=== PATIENT | female | born 1945 | race Caucasian/White ===

== ENCOUNTER 2018-06-09 09:43 | Emergency (ER) | payer MEDICARE ==
--- NOTE | 2018-06-09 10:02 | ER Document Report ---
ED Medical Screen (RME) - General Chief Complaint: Anxiety Stated Complaint: POSSIBLE ANXIETY Time Seen by Provider: 06/09/18 09:48 TRAVEL OUTSIDE OF THE [place] IN LAST 30 DAYS: No - HPI Notes: 06/09/18 10:00 Patient is a 72-year-old female that presents to the emergency department for chief complaint of anxiety. Patient states while at home getting ready for the day she started to feel very fearful. She felt warm, nauseated and a little lightheaded. She states the symptoms lasted for a few minutes however her states they lasted for over an hour. She denies history of panic attacks in the past however her says she has had similar symptoms previously. She denies any diagnosis of anxiety or depression. She denies any major life changes. She denies associated chest pain, palpitations and shortness of breath. Patient finished a prescription of Cipro last week for urinary tract infection. Currently she states she feels back to normal. Past medical history Hernan Henley Past surgical history negative Social history: Denies drugs alcohol and tobacco ROS: GENERAL: Denies fever of chills CV: Denies chest pain PHYSICAL EXAMINATION: GENERAL: Well-appearing, well-nourished and in no acute distress. HEAD: Atraumatic, normocephalic. EYES: Pupils equal round extraocular movements intact, conjunctiva are normal. ENT: Nares patent NECK: Normal range of motion LUNGS: No respiratory distress Musculoskeletal: Normal range of motion NEUROLOGICAL: Normal speech, normal gait. PSYCH: Normal mood, normal affect. MDM: Patient seen and examined for rapid initial assessment. Vital signs reviewed. A comprehensive ED assessment and evaluation of the patient, analysis of test results and completion of the medical decision making process will be conducted by additional ED providers. 06/09/18 10:01 - Related Data Allergies/Adverse Reactions: No Known Allergies Allergy (Unverified 06/09/18 09:47) Past Medical History - Social History Chew tobacco use (# tins/day): No Frequency of alcohol use: None Drug Abuse: None Renal/ Medical History: Denies: Hx Peritoneal Dialysis Physical Exam - Vital signs Vitals: Temp Pulse Resp BP Pulse Ox 98.3 F 76 15 153/84 H 99 06/09/18 09:50 06/09/18 09:50 06/09/18 09:50 06/09/18 09:50 06/09/18 09:50 Course - Vital Signs Vital signs: Temp Pulse Resp BP Pulse Ox 98.3 F 76 15 153/84 H 99 06/09/18 09:50 06/09/18 09:50 06/09/18 09:50 06/09/18 09:50 06/09/18 09:50
[2018-06-09 10:31] LABS: APPEARANCE,URINE CLEAR; BILIRUBIN,URINE NEGATIVE (NEGATIVE); COLOR,URINE STRAW; GLUCOSE, URINE NEGATIVE (NEGATIVE); KETONES,URINE NEGATIVE (NEGATIVE); LEUKOCYTE ESTERASE,URINE NEGATIVE (NEGATIVE); NITRITE,URINE NEGATIVE (NEGATIVE); PROTEIN,URINE NEGATIVE (NEGATIVE); URINE SPECIFIC GRAVITY 1.003; UROBILINOGEN,URINE NEGATIVE mg/dL (<2.0)
--- NOTE | 2018-06-09 10:36 | RADIOLOGY REPORT (SQ) ---
EXAM DESCRIPTION: CHEST SINGLE VIEW COMPLETED DATE/TIME: 06/09/2018 10:21 am REASON FOR STUDY: shortness of breath COMPARISON: None. EXAM PARAMETERS: NUMBER OF VIEWS: One view. TECHNIQUE: Single frontal radiographic view of the chest acquired. RADIATION DOSE: NA LIMITATIONS: None. FINDINGS: LUNGS AND PLEURA: Emphysematous change with hyperinflation. Mild biapical scarring and pl eural thickening. No focal airspace disease, pleural effusion or pneumothorax can. MEDIASTINUM AND HILAR STRUCTURES: No masses. Contour normal. HEART AND VASCULAR STRUCTURES: Normal heart size. Aortic atherosclerosis. BONES: No acute findings. HARDWARE: None in the chest. OTHER: Likely small hiatal hernia. IMPRESSION: Emphysematous change without evidence of acute cardiopulmonary process. TECHNICAL DOCUMENTATION: JOB ID: [id number] [employer]- All Rights Reserved Reading location - IP/workstation name: [email or web address]
--- NOTE | 2018-06-09 10:41 | ER Document Report ---
ED General - General Chief Complaint: Anxiety Stated Complaint: POSSIBLE ANXIETY Time Seen by Provider: 06/09/18 09:48 Primary Care Provider: NEUROLOGY [Provider Group] - Follow up as needed Information source: Patient, Relative Notes: Patient presents reporting an episode of anxiety early this morning that lasted for a few minutes. Patient states that she felt warm and a little nauseated and the symptoms only lasted briefly. Patient spouse who is at bedside states that she became agitated did not know who he was and was telling him that she did not feel safe around him. Patient spouse states that patient has had episodes of memory problems, occasional confusion and seeing things that were not there for the past 6 months although it has not been as severe as it was this morning. Patient is presently now back to her normal baseline per patient spouse. Patient without any recent head injury. Patient was treated for UTI and finished her antibiotics 2 days ago. Patient denies any complaints at present or anxiety symptoms. Patient denies any suicidal or homicidal ideation. Patient is not followed by a primary doctor regularly and does not like to go to medical facilities for treatment. TRAVEL OUTSIDE OF THE [place] IN LAST 30 DAYS: No - HPI Onset: Other - 6 months Onset/Duration: Worse Quality of pain: No pain Pain Level: Denies Associated symptoms: Nausea. denies: Chest pain, Nonproductive cough, Diarrhea, Fever, Vomiting Exacerbated by: Denies Relieved by: Denies Similar symptoms previously: Yes Recently seen / treated by doctor: No - Related Data Allergies/Adverse Reactions: No Known Allergies Allergy (Verified 06/09/18 10:02) Past Medical History - General Information source: Patient, Relative - Social History Smoking Status: Never Smoker Chew tobacco use (# tins/day): No Frequency of alcohol use: None Drug Abuse: None Lives with: Spouse/Significant other Family History: Reviewed & Not Pertinent Patient has suicidal ideation: No Patient has homicidal ideation: No - Medical History Medical History: Other - sheron Henley - Past Medical History Cardiac Medical History: Reports: Hx Hypercholesterolemia - declines to take meds for it Renal/ Medical History: Denies: Hx Peritoneal Dialysis Past Surgical History: Reports: Other - Breast biopsy, nerve biopsy Review of Systems - Review of Systems Constitutional: Recent illness - Finished antibiotics for UTI 2 days ago. denies: Fever EENT: No symptoms reported Cardiovascular: No symptoms reported. denies: Chest pain Respiratory: No symptoms reported. denies: Cough, Short of breath Gastrointestinal: Nausea. denies: Abdominal pain, Vomiting Genitourinary: No symptoms reported. denies: Dysuria, Flank pain Female Genitourinary: No symptoms reported Musculoskeletal: No symptoms reported Skin: No symptoms reported Hematologic/Lymphatic: No symptoms reported Neurological/Psychological: Confusion, Dementia, Hallucinations. denies: Seizure, Lost consciousness, Headaches Physical Exam - Vital signs Vitals: Temp Pulse Resp BP Pulse Ox 98.3 F 76 15 153/84 H 99 06/09/18 09:50 06/09/18 09:50 06/09/18 09:50 06/09/18 09:50 06/09/18 09:50 - General General appearance: Appears well, Alert In distress: None - HEENT Head: Normocephalic, Atraumatic Eyes: Normal Conjunctiva: Normal Eyelashes: Normal Pupils: PERRL Ears: Normal External canal: Normal Nasal: Normal Mouth/Lips: Normal Mucous membranes: Normal Neck: Normal, Supple. No: Lymphadenopathy, Meningismus - Respiratory Respiratory status: No respiratory distress Chest status: Nontender Breath sounds: Normal. No: Rales, Rhonchi, Stridor, Wheezing Chest palpation: Normal - Cardiovascular Rhythm: Regular Heart sounds: S1 appreciated, S2 appreciated Murmur: No - Abdominal Inspection: Normal Distension: No distension Bowel sounds: Normal Tenderness: Nontender Organomegaly: No organomegaly - Back Back: Normal, Nontender. No: CVA tenderness, Vertebra tenderness - Extremities General upper extremity: Normal inspection, Normal ROM General lower extremity: Normal inspection, Normal ROM. No: Edema - Neurological Neuro grossly intact: Yes Cognition: Normal [place] Coma Scale Eye Opening: Spontaneous Amy Coma Scale Verbal: Oriented Amy Coma Scale Motor: Obeys Commands Amy Coma Scale Total: 15 Speech: Normal. No: Dysarthria Cranial nerves: No: Facial palsy Cerebellar coordination: Normal Motor strength normal: LUE, RUE, LLE, RLE - Psychological Associated symptoms: Normal affect, Normal mood - Skin Skin Temperature: Warm Skin Moisture: Dry Skin Color: Normal Course - Re-evaluation Re-evalutation: 06/09/18 11:50 Patient resting comfortably, no acute distress. Patient without any anxiety symptoms at this time. Patient with no complaints. Consulted with Dr. Carmona regarding patient's presentation and diagnostic evaluation. Patient without any acute illness or acute trauma. Patient without any focal neurologic deficits at this time. No concern for acute CVA. No electrolyte derangement. Suspect likely dementia at this time. Does not recommend starting any medications but does recommend having patient follow-up with primary doctor as well as neurology for further evaluation. No concern for acute stroke. Patient without any focal neurologic deficits at this time. 06/09/18 12:13 Discussed with the family concerns about diagnosis and need for additional follow-up. Will provide patient and spouse with numbers for neurology. Discussed worsening symptoms to return. Patient and her spouse verbalized understanding and agree with plan of care at this time. 06/09/18 12:24 - Vital Signs Vital signs: Temp Pulse Resp BP Pulse Ox 98.4 F 76 10 L 142/86 H 100 06/09/18 12:24 06/09/18 09:50 06/09/18 12:04 06/09/18 12:04 06/09/18 12:04 - Laboratory Result Diagrams: 06/09/18 10:25 06/09/18 10:25 Laboratory results interpreted by me: 06/09/18 10:25 Sodium 136.4 L Calcium 10.3 H Labs- Entire Visit 06/09/18 06/09/18 06/09/18 10:10 10:25 10:25 WBC 5.4 RBC 4.73 Hgb 14.3 Hct 41.4 MCV 88 MCH 30.2 MCHC 34.6 RDW 12.7 Plt Count 366 Seg Neutrophils % 70.8 Lymphocytes % 18.3 Monocytes % 9.8 Eosinophils % 0.5 Basophils % 0.6 Absolute Neutrophils 3.8 Absolute Lymphocytes 1.0 Absolute Monocytes 0.5 Absolute Eosinophils 0.0 Absolute Basophils 0.0 Sodium 136.4 L Potassium 4.0 Chloride 98 Carbon Dioxide 29 Anion Gap 9 BUN 12 Creatinine 0.71 Est GFR ( Amer) > 60 Est GFR (Non-Af Amer) > 60 Glucose 107 Calcium 10.3 H Troponin I Urine Color STRAW Urine Appearance CLEAR Urine pH 8.0 Ur Specific [place] 1.003 Urine Protein NEGATIVE Urine Glucose (UA) NEGATIVE Urine Ketones NEGATIVE Urine Blood NEGATIVE Urine Nitrite NEGATIVE Urine Bilirubin NEGATIVE Urine Urobilinogen NEGATIVE Ur Leukocyte Esterase NEGATIVE Urine RBC (Auto) 0 Squamous Epi Cells Auto <1 Urine Mucus (Auto) RARE Urine Ascorbic Acid NEGATIVE 06/09/18 10:25 WBC RBC Hgb Hct MCV MCH MCHC RDW Plt Count Seg Neutrophils % Lymphocytes % Monocytes % Eosinophils % Basophils % Absolute Neutrophils Absolute Lymphocytes Absolute Monocytes Absolute Eosinophils Absolute Basophils Sodium Potassium Chloride Carbon Dioxide Anion Gap BUN Creatinine Est GFR ( Amer) Est GFR (Non-Af Amer) Glucose Calcium Troponin I < 0.012 Urine Color Urine Appearance Urine pH Ur Specific Marion Urine Protein Urine Glucose (UA) Urine Ketones Urine Blood Urine Nitrite Urine Bilirubin Urine Urobilinogen Ur Leukocyte Esterase Urine RBC (Auto) Squamous Epi Cells Auto Urine Mucus (Auto) Urine Ascorbic Acid - Diagnostic Test Radiology reviewed: Reports reviewed - EKG Interpretation by Me EKG shows normal: Sinus rhythm Additional EKG results interpreted by me: 06/09/18 11:45 QTC 390 Discharge - Discharge Clinical Impression: Dementia Qualifiers: Dementia type: unspecified type Dementia behavioral disturbance: without behavioral disturbance Qualified Code(s): F03.90 - Unspecified dementia without behavioral disturbance Disposition: HOME, SELF-CARE Instructions: Dementia ([facility]) Additional Instructions: Return immediately for any new or worsening symptoms Followup with your primary care provider, call tomorrow to make a followup appointment Follow-up with a neurologist for further evaluation, call today to make a follow-up appointment [facility] [address] [facility] [address] [place] [facility] [address] [facility] [address] [facility] Referrals: NEUROLOGY [Provider Group] - Follow up as needed
[2018-06-09 10:47] LABS: ABSOLUTE MONOCYTES (AUTO) 0.5 10^3/uL (0.1-1.4); ABSOLUTE NEUT (AUTO) 3.8 10^3/uL (1.7-8.2); BASOPHILS % (AUTO) 0.6 % (0-2); EOSINOPHILS % (AUTO) 0.5 % (0-6); HEMATOCRIT 41.4 % (36.0-47.0); HEMOGLOBIN 14.3 g/dL (12.0-15.5); LYMPHOCYTES % (AUTO) 18.3 % (13-45); MEAN CORPUSCULAR HEMOGLOBIN 30.2 pg (27.0-33.4); MEAN CORPUSCULAR HGB CONC 34.6 g/dL (32.0-36.0); MEAN CORPUSCULAR VOLUME 88 fl (80-97); MONOCYTES % (AUTO) 9.8 % (3-13); PLATELET COUNT 366 10^3/uL (150-450); RED BLOOD COUNT 4.73 10^6/uL (3.72-5.28); RED CELL DISTRIBUTION WIDTH 12.7 % (11.5-14.0); SEGMENTED NEUTROPHILS % (AUTO) 70.8 % (42-78); TOTAL CELLS COUNTED % (AUTO) 100 %; WHITE BLOOD COUNT 5.4 10^3/uL (4.0-10.5)
[2018-06-09 11:07] LABS: ANION GAP 9 (5-19); BLOOD UREA NITROGEN 12 mg/dL (7-20); CALCIUM 10.3 mg/dL (8.4-10.2); CARBON DIOXIDE 29 mmol/L (22-30); CHLORIDE 98 mmol/L (98-107); GLUCOSE 107 mg/dL (75-110); SODIUM 136.4 mmol/L (137-145)
--- NOTE | 2018-06-09 11:25 | RADIOLOGY REPORT (SQ) ---
EXAM DESCRIPTION: CT HEAD WITHOUT COMPLETED DATE/TIME: 06/09/2018 11:18 am REASON FOR STUDY: episode of confusion COMPARISON: None. TECHNIQUE: Axial images acquired through the brain without intravenous contrast. Images reviewed wi th bone, brain and subdural windows. Additional sagittal and coronal reconstructions were generated. Images stored on PACS. All CT scanners at this facility use dose modulation, iterative reconstruction, and/or weight based d osing when appropriate to reduce radiation dose to as low as reasonably achievable (ALARA). [facility]: Dose Right [facility]: CareDose [facility]: Dose Right [facility]: Teradose 4D [facility]: [employer] RADIATION DOSE: CT Rad equipment meets quality standard of care and radiation dose reduction techniq ues were employed. CTDIvol: 53.2 mGy. DLP: 991 mGy-cm.mGy. LIMITATIONS: None. FINDINGS: VENTRICLES: Prominent. CEREBRUM: No masses. No hemorrhage. No midline shift. Areas of low density in the white matter mos t likely due to chronic micro-vascular ischemic change. No evidence for acute infarction. CEREBELLUM: No masses. No hemorrhage. No alteration of density. No evidence for acute infarction. EXTRAAXIAL SPACES: Age-related involutional change. No fluid collections. No masses. ORBITS AND GLOBE: No intra- or extraconal masses. Normal contour of globe without masses. CALVARIUM: No fracture. PARANASAL SINUSES: No fluid or mucosal thickening. SOFT TISSUES: No mass or hematoma. OTHER: No other significant finding. IMPRESSION: CHRONIC CHANGES OF ATROPHY AND MICROVASCULAR ISCHEMIA. NO ACUTE PROCESS. EVIDENCE OF ACUTE STROKE: NO. TECHNICAL DOCUMENTATION: JOB ID: [id number] Quality ID # [id number]: Final reports with documentation of one or more dose reduction techniques (e.g., Au tomated exposure control, adjustment of the mA and/or kV according to patient size, use of iterative reconstruction technique) 2010 [employer]- All Rights Reserved Reading location - IP/workstation name: [email or web address]
[2018-06-09 12:20] VITALS: BP 142/86
--- NOTE | 2018-06-09 16:42 | EKG REPORT ---
SEVERITY:- OTHERWISE NORMAL ECG - SINUS RHYTHM ABERRANT COMPLEX : Confirmed by: Keshia Mott 09-Jun-2018 16:41:46
== END 2018-06-09 12:24 | disposition home or self-care (01) ==
LOC: ER 09:43
DX: F03.90 Unspecified dementia, unspecified severity, without behavioral disturbance, psychotic disturbance, mood disturbance, and anxiety (principal); R11.0 Nausea; Z87.440 Personal history of urinary (tract) infections
CPT/HCPCS: 36415; 70450; 71045; 80048; 81001; 84484; 85025; 93005; 93010; 99284

== ENCOUNTER → 2018-07-07 | Outpatient (CLI) | payer MEDICARE ==
--- NOTE | 2018-07-08 14:26 | NEURO WORKBENCH EEG REPORT ---
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 This EEG was requested for evaluation of epileptiform activity. EEG Interpretation: This EEG was recorded during wakefulness and stage I sleep. The awake EEG is characterized by a poorly reactive posterior dominant rhythm (PDR) of approximately 6 Hz. The remainder of the background consisted of diffuse 5-7 Hz theta with occasional intermixed 2-3 Hz delta activity. The EEG is asymmetric in amplitudes, with frequently lower amplitudes in the right temporal-occipital region. Note that there was persistent EMG artifact in the T4 and F4 electrodes limiting interpretation of the EEG over the right hemisphere. There were intermittent sharply contoured waveforms in the left central-parietal region and left temporal region, which were sometimes synchronous and other times independent, and which at times had a semi-periodic frequency. These waveforms more rarely appeared to have a generalized field. These waveforms were not clearly epileptiform in etiology. Photic stimulation resulted in no significant photic driving, and there was no epileptiform activity elicited with photic stimulation. Hyperventilation resulted in slight global slowing of the background EEG and more diffuse EMG artifact; no epileptiform activity was elicited. Stage I sleep was achieved and characterized by minimal slow rolling eye movements, mild slowing of the background rhythm, and vertex waves. Stage II sleep was not achieved. There were no seizures. The EKG showed a regular rhythm with typically 60-70 beats per minute. EEG Impression: This EEG is abnormal due to the diffusely slow background activity and posterior dominant rhythm, which is a non-specific finding but can be seen in elderly patients with underlying dementia which may be consistent with this patients limited history available to me. In addition, the right temporal-occipital amplitudes appeared lower in comparison to the left temporal-occipital region, which can suggest underlying right temporal-occipital lobe dysfunction. Clinical correlation is needed. The predominantly left hemisphere sharply contoured waveforms (and more rarely generalized) are not clearly epileptiform in etiology, and are of uncertain clinical significance. In patients with underlying neurodegenerative diseases, the appearance of typical abnormal EEG waveforms can be affected making interpretation difficult. It is possible that due to the patients underlying neurodegenerative disorder, these sharply contoured waveforms could be poorly generated Periodic Lateralized Discharges or Generalized Periodic Discharges (recall that the right hemisphere was contaminated with artifact making generalized waveforms difficult to appreciate). Further evaluation with MRI of the brain is appropriate to evaluate for any structural abnormalities. Periodic Discharges may be associated with epilepsy although are not diagnostic, and if there is high clinical suspicion for epilepsy, then treatment with an appropriate antiepileptic medication could be considered. Given the limitations of this single EEG (right sided artifact), additional EEG evaluation should be considered with a sleep-deprived EEG or more prolonged EEG monitoring given the unclear clinical significance of these sharply contoured waveforms as noted above. INTERPRETING NEUROLOGIST: MD MERRY Rodríguez
== END ==
LOC: NEURO 13:03
PROVIDERS: ATTEND Pediatrics
DX: R41.3 Other amnesia (principal); R41.0 Disorientation, unspecified; R41.840 Attention and concentration deficit
CPT/HCPCS: 95819

== ENCOUNTER 2019-02-18 18:21 | Emergency (ER) | payer MEDICARE ==
--- NOTE | 2019-02-18 18:50 | ER Document Report ---
ED Medical Screen (RME) - General Chief Complaint: Fall Injury Stated Complaint: FELL - RECHECK Time Seen by Provider: 02/18/19 18:44 Mode of Arrival: Wheelchair Information source: Parent Notes: 73-year-old female presented ED for complaint of a fall this afternoon. They went to the [facility] emergency room and word was diagnosed with a fractured clavicle right side and possible concussion. Daughter states that she had a CT of the head C-spine chest x-ray shoulder and elbow of the right x-rays. The imaging on the discharge papers states that she had a closed nondisplaced fracture of the right clavicle abrasion to the right upper extremity a closed head injury and she has chronic advanced dementia. She did receive Zofran and is no longer nauseated. Daughter would like mother reexamined because she thought they rushed her through and rushed her out and she would like a second opinion. Have asked the emergency room at [facility] to push the x-rays and CT to the emergency room here for them to look at. Patient does have a sling on that does not fit properly. Daughter states that when they set her up to put the sling on her that she was so dizzy and nauseated that it scared the daughter when she was being discharged. I have greeted and performed a rapid initial assessment of this patient. A comprehensive ED assessment and evaluation of the patient, analysis of test results and completion of medical decision making process will be conducted by an additional ED providers. TRAVEL OUTSIDE OF THE [place] IN LAST 30 DAYS: No - Related Data Allergies/Adverse Reactions: No Known Allergies Allergy (Verified 02/18/19 18:42) Past Medical History - Past Medical History Cardiac Medical History: Reports: Hx Hypercholesterolemia - declines to take meds for it Renal/ Medical History: Denies: Hx Peritoneal Dialysis Past Surgical History: Reports: Other - Breast biopsy, nerve biopsy Physical Exam - Vital signs Vitals: Temp Pulse BP Pulse Ox 97.6 F 72 176/87 H 97 02/18/19 18:28 02/18/19 18:28 02/18/19 18:28 02/18/19 18:28 Course - Vital Signs Vital signs: Temp Pulse Resp BP Pulse Ox 97.6 F 72 176/87 H 97 02/18/19 18:28 02/18/19 18:28 02/18/19 18:28 02/18/19 18:28
[2019-02-18] MEDS ORDERED: HYDROCODONE/ACETAMINOPHEN 5-325 MG TABLET PO ONE (18:51)
[2019-02-18] MEDS ORDERED: DIPH/PERTUSS(ACELL)/TETANUS VAC/PF 0.5 ML SYR (>=10YO) IM ONE (21:12)
--- NOTE | 2019-02-18 21:19 | ER Document Report ---
ED General - General Chief Complaint: Fall Injury Stated Complaint: FELL - RECHECK Time Seen by Provider: 02/18/19 18:44 Mode of Arrival: Wheelchair TRAVEL OUTSIDE OF THE [place] IN LAST 30 DAYS: No - HPI Notes: Patient is a 73-year-old female brought in the emergency department for evaluation. She has a history of dementia, patient's daughter and are the primary historians. Evidently they had walked up onto the front porch, patient lost her balance and she fell forward, 5 feet out of the porch. She hit her face. There was loss of consciousness. She sustained a skin tear to her right elbow. They were evaluated at another emergency department. Patient's daughter states she that she felt that they were "rushed" through the emergency department, and she presents here for further evaluation. The patient denies to me any pain of any sort. The family states that they do not believe her tetanus was updated, they are unsure as to when her last tetanus shot was. - Related Data Allergies/Adverse Reactions: No Known Allergies Allergy (Verified 02/18/19 18:42) Home Medications: prozac, xanax Past Medical History - General Information source: Patient, Relative - Social History Smoking Status: Never Smoker Chew tobacco use (# tins/day): No Frequency of alcohol use: None Drug Abuse: None Family History: Reviewed & Not Pertinent Patient has suicidal ideation: No Patient has homicidal ideation: No - Past Medical History Cardiac Medical History: Reports: Hx Hypercholesterolemia - declines to take meds for it Renal/ Medical History: Denies: Hx Peritoneal Dialysis Psychiatric Medical History: Reports: Hx Dementia Past Surgical History: Reports: Other - Breast biopsy, nerve biopsy Review of Systems - Review of Systems -: Yes ROS unobtainable due to patient's medical condition - Dementia Physical Exam - Vital signs Vitals: Temp Pulse BP Pulse Ox 97.6 F 72 176/87 H 97 02/18/19 18:28 02/18/19 18:28 02/18/19 18:28 02/18/19 18:28 - Notes Notes: Vital signs reviewed, please refer to chart. Head is normocephalic. Pupils equal round, reactive to light. She does have some dried blood at the external right nostril. Minimal amount of swelling over the bridge of the nose. No other significant facial bone tenderness is appreciated. Uvula is midline. Examination of the cervical spine is no midline tenderness or step-off. No paraspinal musculature tenderness is appreciated.. Heart is regular rate and rhythm. Lungs are clear to auscultation bilaterally. Chest wall is nontender. Minimal tenderness over the lateral aspect of the right clavicle. Abdomen is soft, nontender, normoactive bowel sounds throughout. Extremities without cyanosis, clubbing. Posterior calves are nontender. Peripheral pulses are e qual. Skin is warm and dry. She does have a 3 x 3 cm skin tear noted to the forearm, just distal to the right elbow, with no clear foreign body or active bleeding. Patient is laying in the bed with her eyes closed, but arouses to verbal stimuli. She is mentating at baseline per family. Follows directions and moves all 4 extremity spontaneously. Course - Re-evaluation Re-evalutation: 02/19/19 01:02 Patient presents emergency department for evaluation. She was seen at another ED earlier. She was brought in for another opinion, as family was concerned that something was missed. Plain x-rays were interpreted by myself as well as the radiologist as showing a distal clavicle fracture, but otherwise were unremarkable. She was given a new sling, as she had been given a pediatric sling at the prior facility which was uncomfortable for the patient. She was neurovascularly intact following the placement of the new sling. Unfortunately CT scans could not be evaluated by radiology here, so they were repeated. Thyroid ultrasound was recommended for thyroid nodule that was found incidentally. Otherwise no acute fracture was noted. Patient has significant relief from her [place] here. I did update her tetanus. Her wound was cleansed and a small amount of Dermabond was placed around the distal aspects of the skin tear to allow for better healing. The wound was then dressed with nonadherent dressing. I am concerned that this patient is suffering from some postconcussive symptoms. Information was passed on to the family about this as well. They are to follow with her closely. They are warned about the possibility of dizziness, drowsiness, constipation with the [place]. They are to return with her to the ED for worsening or new concerning symptoms of any sort. - Vital Signs Vital signs: Temp Pulse Resp BP Pulse Ox 97.6 F 79 119/58 L 97 02/18/19 18:28 02/19/19 00:58 02/19/19 00:58 02/19/19 00:58 - Diagnostic Test Radiology reviewed: Image reviewed, Reports reviewed Radiology results interpreted by me: 02/19/19 00:[address] 02/18/19 21:59 IMPRESSION: 1. No acute fracture or subluxation of the cervical spine. 2. Degenerative change of the cervical spine. 3. 2.8 cm incidental thyroid nodule. Recommend thyroid US. Reference: J Am Bubba Radiol. 2015 Apr;12(2): 143-50 This exam was performed according to our departmental dose-optimization program, which includes automated exposure control, adjustment of the mA and/or kV according to patient size and/or use of iterative reconstruction technique. Facial Bones CT 02/18/19 21:59 IMPRESSION: Limited due to motion. However, no discrete facial bone fracture. Right maxillary and right sphenoid sinusitis. TECHNICAL DOCUMENTATION: Quality ID # 436: Final reports with documentation of one or more dose reduction techniques (e.g., Automated exposure control, adjustment of the mA and/or kV according to patient size, use of iterative reconstruction technique) copyright 2011 [employer]- All Rights Reserved Head CT 02/18/19 21:59 IMPRESSION: 1. No acute intracranial abnormality by CT criteria. This exam was performed according to our departmental dose-optimization program, which includes automated exposure control, adjustment of the mA and/or kV according to patient size and/or use of iterative reconstruction technique. Procedures - Laceration/Wound Repair Right Arm Wound length (cm): 4 Wound's Depth, Shape: Superficial Notes: 02/19/19 01:06 Skin tear on the right forearm was thoroughly cleansed with saline, and explored. Using Dermabond, I was able to approximate the skin tear edges on the distal aspect of the wound. Patient tolerated this well without complication. Discharge - Discharge Clinical Impression: Contusion of nose, initial encounter, Thyroid nodule Closed head injury Qualifiers: Encounter type: initial encounter Qualified Code(s): S09.90XA - Unspecified injury of head, initial encounter Concussion Qualifiers: Encounter type: initial encounter Loss of consciousness presence/duration: with LOC of 30 min or less Qualified Code(s): S06.0X1A - Concussion with loss of consciousness of 30 minutes or less, initial encounter Skin tear of right forearm without complication Qualifiers: Encounter type: initial encounter Qualified Code(s): S51.811A - Laceration without foreign body of right forearm, initial encounter Right clavicle fracture Qualifiers: Encounter type: initial encounter Clavicle location: lateral end Fracture type: closed Fracture alignment: displaced Qualified Code(s): S42.031A - Displaced fracture of lateral end of right clavicle, initial encounter for closed fracture Condition: Stable Disposition: HOME, SELF-CARE Instructions: Concussion ([facility]), Fractured Clavicle ([facility]), Skin Tear ([facility]) Additional Instructions: Evaluation here today revealed the clavicle fracture but no other acute process was noted. She does have signs and symptoms of a concussion as discussed. Allow her to rest. [place] as needed for severe pain. Please watch for dizziness, drowsiness, constipation with this medication. A thyroid nodule was noted on CT scan, and it is recommended that this be followed up with ultrasound. Follow-up with primary care next week. Return to the ED with worsening or new concerning symptoms of any sort.
--- NOTE | 2019-02-18 21:23 | RADIOLOGY REPORT (SQ) ---
EXAM DESCRIPTION: Right shoulder, three views XR UNLISTED RADIOGRAPHIC PROCEDURE COMPLETED DATE/TME: 02/18/2019 00:00 CLINICAL HISTORY: 73 years Female OUTSIDE IMAGES TO PACS FROM [facility] COMPARISON: None. TECHNIQUE: RIGHT shoulder three view FINDINGS: Bony demineralization. Glenohumeral joint appears intact. There appears to be a comminuted minimally displaced fracture of the distal right clavicle. The AC joint appears intact. IMPRESSION: Fracture of the distal right clavicle with minimal displacement
--- NOTE | 2019-02-18 21:29 | RADIOLOGY REPORT (SQ) ---
EXAM DESCRIPTION: XR UNLISTED RADIOGRAPHIC PROCEDURE COMPLETED DATE/TME: 02/18/2019 00:00 CLINICAL HISTORY: 73 years ,Female OUTSIDE IMAGES TO PACS FROM [facility] COMPARISON: None. TECHNIQUE: RIGHT elbow, Three view FINDINGS: No acute fractures or dislocations are identified. No osseous destructive lesions. No evidence of joint effusion. IMPRESSION: No acute fractures are identified. If symptoms persist, followup is recommended in 7-10 days.
--- NOTE | 2019-02-18 21:36 | RADIOLOGY REPORT (SQ) ---
EXAM DESCRIPTION: XR UNLISTED RADIOGRAPHIC PROCEDURE COMPLETED DATE/TME: 02/18/2019 00:00 CLINICAL HISTORY: 73 years Female OUTSIDE IMAGES TO PACS FROM [facility] COMPARISON: 06/09/2018. FINDINGS: Cardiac size is within normal limits. Patient is rotated to the right which limits evaluation. Fracture the distal right clavicle. Tortuous and calcified aorta. Lungs are hyperinflated consistent with COPD. No acute consolidation or evidence of edema. IMPRESSION: Pulmonary hyperinflation without evidence of acute infiltrate Fracture of the distal right clavicle
--- NOTE | 2019-02-19 00:08 | RADIOLOGY REPORT (SQ) ---
EXAM DESCRIPTION: CT MAXILLOFACIAL WITHOUT IV CONTRAST COMPLETED DATE/TME: 02/18/2019 21:59 CLINICAL HISTORY: 73 years, Female, fall COMPARISON: None. TECHNIQUE: 456 Images stored on PACS. All CT scanners at this facility use dose modulation, iterative reconstruction, and/or weight based dosing when appropriate to reduce radiation dose to as low as reasonably achievable (ALARA). [facility]: Dose Right [facility]: CareDose [facility]: Dose Right [facility]: Teradose 4D [facility]: Smart [employer] LIMITATIONS: None. FINDINGS: Motion artifact degrades image quality and limits the exam. The globes are intact. Limited evaluation of brain parenchyma is grossly unremarkable. Small air-fluid level of the right maxillary and right sphenoid sinus. Paranasal sinuses are otherwise well aerated. No discrete facial bone fracture IMPRESSION: Limited due to motion. However, no discrete facial bone fracture. Right maxillary and right sphenoid sinusitis. TECHNICAL DOCUMENTATION: Quality ID # 436: Final reports with documentation of one or more dose reduction techniques (e.g., Automated exposure control, adjustment of the mA and/or kV according to patient size, use of iterative reconstruction technique) copyright 2011 [email or web address]- All Rights Reserved
--- NOTE | 2019-02-19 00:14 | RADIOLOGY REPORT (SQ) ---
EXAM DESCRIPTION: CT of the head without contrast COMPLETED DATE/TME: 02/18/2019 21:59 CLINICAL HISTORY: fall/pain COMPARISON: 06/09/2018 TECHNIQUE: Axial CT of the head obtained from the skull apex to the skull base without contrast. Motion artifact. FINDINGS: No acute intracranial hemorrhage identified. No mass, mass effect, shift of the midline, abnormal extra-axial fluid collection or CT evidence of acute ischemic change identified. The ventricular system and sulcal spaces are mildly enlarged compatible with mild cerebral atrophy. Scattered areas of hypodensity throughout the supratentorial white matter are nonspecific and may be related to chronic small vessel ischemic change. Air-fluid level in the right maxillary sinus. Mastoid air cells are relatively well aerated. No skull fracture identified. Visualized orbits and globes are unremarkable. Atherosclerotic calcification of the intracranial internal carotid arteries. IMPRESSION: 1. No acute intracranial abnormality by CT criteria. This exam was performed according to our departmental dose-optimization program, which includes automated exposure control, adjustment of the mA and/or kV according to patient size and/or use of iterative reconstruction technique.
--- NOTE | 2019-02-19 00:19 | RADIOLOGY REPORT (SQ) ---
EXAM DESCRIPTION: CT CERVICAL SPINE WITHOUT IV CONTRAST COMPLETED DATE/TME: 02/18/2019 21:59 CLINICAL HISTORY: Fall/pain COMPARISON: None available TECHNIQUE: Axial CT of the cervical spine obtained without contrast. FINDINGS: Alignment of the cervical spine is maintained without evidence of subluxation. The atlantoaxial, atlantodental, and occipitoatlantal intervals are preserved. No fracture identified. Vertebral body height preserved. Prevertebral soft tissues are unremarkable. Mild multilevel loss of intervertebral disc height with endplate spondylosis and facet arthropathy. Visualized skull base is intact. No fracture of the visualized facial bones. Opacities in the right maxillary sinus. Visualized mastoid air cells are well aerated. 2.8 cm heterogeneous partially calcified right thyroid nodule. No cervical lymphadenopathy. No pneumothorax in the visualized lung apices. Atherosclerotic calcification of the carotid arteries.. IMPRESSION: 1. No acute fracture or subluxation of the cervical spine. 2. Degenerative change of the cervical spine. 3. 2.8 cm incidental thyroid nodule. Recommend thyroid US. Reference: J Am Bubba Radiol. 2015 Apr;12(2): 143-50 This exam was performed according to our departmental dose-optimization program, which includes automated exposure control, adjustment of the mA and/or kV according to patient size and/or use of iterative reconstruction technique.
[2019-02-19] MEDS ORDERED: HYDROCODONE/ACETAMINOPHEN 5-325 MG (6 TAB/ER DISP) PO PRN (00:58)
[2019-02-19 00:59] VITALS: BP 119/58
== END 2019-02-19 01:37 | disposition home or self-care (01) ==
LOC: ER 18:21
PROC: 0HQDXZZ Repair Right Lower Arm Skin, External Approach (ICD-10-PCS; principal; 2019-02-18)
DX: S42.031A Displaced fracture of lateral end of right clavicle, initial encounter for closed fracture (principal); S51.011A Laceration without foreign body of right elbow, initial encounter; S09.90XA Unspecified injury of head, initial encounter; S00.33XA Contusion of nose, initial encounter; W17.89XA Other fall from one level to another, initial encounter; E04.1 Nontoxic single thyroid nodule
CPT/HCPCS: 12001; G0168; 70450; 70486; 72125; 90471; 90715; 99283

== ENCOUNTER 2019-02-25 14:31 | Inpatient (IN) | payer MEDICARE ==
[2019-02-25] MEDS ORDERED: NORMAL SALINE 1000 ML 1,000 ML IV ONE (14:46)
[2019-02-25] MEDS ORDERED: ONDANSETRON HCL INJ/PF 4 MG/2 ML SDV IV ONE (14:46)
--- NOTE | 2019-02-25 14:53 | ER Document Report ---
ED Medical Screen (RME) - General Stated Complaint: FEVER Time Seen by Provider: 02/25/19 14:40 Notes: Patient is a 73-year-old female who presents emergency department with altered mental status and nausea. She was seen by the home health nurse this morning and was told she was warm and was referred to the emergency department. Patient was seen on Friday in [facility] and was diagnosed with hyponatremia and dehydration. She also sustained a fall on February 18. Patient denies any new weakness. Denies any abdominal pain. Daughter who is at bedside states the patient has not been eating or drinking well. Exam: Thin in appearance. Clear breath sounds. I have greeted and performed a rapid initial assessment of this patient. A comprehensive ED assessment and evaluation of the patient, analysis of test results and completion of medical decision making process will be conducted by an additional ED providers. TRAVEL OUTSIDE OF THE [place] IN LAST 30 DAYS: No - Related Data Allergies/Adverse Reactions: No Known Allergies Allergy (Verified 02/18/19 18:42) Past Medical History - Past Medical History Cardiac Medical History: Reports: Hx Hypercholesterolemia - declines to take meds for it Renal/ Medical History: Denies: Hx Peritoneal Dialysis Psychiatric Medical History: Reports: Hx Dementia Past Surgical History: Reports: Other - Breast biopsy, nerve biopsy Physical Exam - Vital signs Vitals: Temp Pulse Resp BP Pulse Ox 98.8 F 78 16 133/82 H 98 02/25/19 14:37 02/25/19 14:37 02/25/19 14:37 02/25/19 14:37 02/25/19 14:37 Course - Vital Signs Vital signs: Temp Pulse Resp BP Pulse Ox 98.8 F 78 16 133/82 H 98 02/25/19 14:37 02/25/19 14:37 02/25/19 14:37 02/25/19 14:37 02/25/19 14:37
--- NOTE | 2019-02-25 15:27 | RADIOLOGY REPORT (SQ) ---
EXAM DESCRIPTION: CT HEAD WITHOUT COMPLETED DATE/TIME: 02/25/2019 3:13 pm REASON FOR STUDY: Alterred Mental Status COMPARISON: 02/18/2019 TECHNIQUE: Axial images acquired through the brain without intravenous contrast. Images reviewed wi th bone, brain and subdural windows. Additional sagittal and coronal reconstructions were generated. Images stored on PACS. All CT scanners at this facility use dose modulation, iterative reconstruction, and/or weight based d osing when appropriate to reduce radiation dose to as low as reasonably achievable (ALARA). [facility]: Dose Right [facility]: CareDose [facility]: Dose Right [facility]: Teradose 4D [facility]: Smart [employer] RADIATION DOSE: CT Rad equipment meets quality standard of care and radiation dose reduction techniq ues were employed. CTDIvol: 55.2 mGy. DLP: 1029 mGy-cm. mGy. LIMITATIONS: None. FINDINGS: VENTRICLES: Normal size and contour. CEREBRUM: No masses. No hemorrhage. No midline shift. No evidence for acute infarction. Areas of l ow density in the white matter most likely chronic small vessel ischemic changes. CEREBELLUM: No masses. No hemorrhage. No alteration of density. No evidence for acute infarction. EXTRAAXIAL SPACES: No fluid collections. No masses. ORBITS AND GLOBE: No intra- or extraconal masses. Normal contour of globe without masses. CALVARIUM: No fracture. PARANASAL SINUSES: No fluid or mucosal thickening. SOFT TISSUES: No mass or hematoma. OTHER: No other significant finding. IMPRESSION: CHRONIC MICROVASCULAR ISCHEMIA. NO ACUTE IMAGING FINDINGS IN THE BRAIN. EVIDENCE OF ACUTE STROKE: NO. COMMENT: Quality ID # 436: Final reports with documentation of one or more dose reduction techniques (e.g., Automated exposure control, adjustment of the mA and/or kV according to patient size, use of iterative reconstruction technique) TECHNICAL DOCUMENTATION: JOB ID: [id number] [employer] All Rights Reserved Reading location - IP/workstation name: [email or web address]
[2019-02-25 16:03] LABS: ABSOLUTE LYMPHOCYTES (AUTO) 0.9 10^3/uL (0.5-4.7); ABSOLUTE MONOCYTES (AUTO) 0.9 10^3/uL (0.1-1.4); ABSOLUTE NEUT (AUTO) 5.3 10^3/uL (1.7-8.2); BASOPHILS % (AUTO) 0.4 % (0-2); EOSINOPHILS % (AUTO) 0.4 % (0-6); HEMATOCRIT 36.4 % (36.0-47.0); LYMPHOCYTES % (AUTO) 12.5 % (13-45); MEAN CORPUSCULAR HEMOGLOBIN 30.1 pg (27.0-33.4); MEAN CORPUSCULAR HGB CONC 35.7 g/dL (32.0-36.0); MEAN CORPUSCULAR VOLUME 84 fl (80-97); MONOCYTES % (AUTO) 12.6 % (3-13); PLATELET COUNT 297 10^3/uL (150-450); RED BLOOD COUNT 4.32 10^6/uL (3.72-5.28); RED CELL DISTRIBUTION WIDTH 12.7 % (11.5-14.0); SEGMENTED NEUTROPHILS % (AUTO) 74.1 % (42-78); TOTAL CELLS COUNTED % (AUTO) 100 %; WHITE BLOOD COUNT 7.2 10^3/uL (4.0-10.5)
[2019-02-25 16:26] LABS: ALBUMIN 3.8 g/dL (3.5-5.0); ALKALINE PHOSPHATASE 71 U/L (38-126); ASPARTATE AMINO TRANSFERASE 57 U/L (14-36); BILIRUBIN,DIRECT 0.1 mg/dL (0.0-0.4); BILIRUBIN,TOTAL 1.1 mg/dL (0.2-1.3); BLOOD UREA NITROGEN 7 mg/dL (7-20); CALCIUM 9.2 mg/dL (8.4-10.2); CARBON DIOXIDE 22 mmol/L (22-30); CHLORIDE 81 mmol/L (98-107); GLUCOSE 99 mg/dL (75-110); TOTAL PROTEIN 6.4 g/dL (6.3-8.2)
--- NOTE | 2019-02-25 16:26 | RADIOLOGY REPORT (SQ) ---
EXAM DESCRIPTION: CHEST SINGLE VIEW COMPLETED DATE/TIME: 02/25/2019 3:23 pm REASON FOR STUDY: AMS COMPARISON: 06/09/2018 EXAM PARAMETERS: NUMBER OF VIEWS: One view. TECHNIQUE: Single frontal radiographic view of the chest acquired. RADIATION DOSE: NA LIMITATIONS: Patient is rotated. FINDINGS: LUNGS AND PLEURA: No opacities, masses or pneumothorax. No pleural effusion. MEDIASTINUM AND HILAR STRUCTURES: No masses. Contour normal. HEART AND VASCULAR STRUCTURES: Heart normal in size. Normal vasculature. BONES: No acute findings. HARDWARE: None in the chest. OTHER: No other significant finding. IMPRESSION: NO ACUTE RADIOGRAPHIC FINDING IN THE CHEST. TECHNICAL DOCUMENTATION: JOB ID: [id number] [employer]- All Rights Reserved Reading location - IP/workstation name: [email or web address]
[2019-02-25 16:28] LABS: ANION GAP 11 (5-19)
[2019-02-25 17:42] LABS: APPEARANCE,URINE CLEAR; BILIRUBIN,URINE NEGATIVE (NEGATIVE); COLOR,URINE YELLOW; GLUCOSE, URINE NEGATIVE (NEGATIVE); KETONES,URINE 20 mg/dL (NEGATIVE); LEUKOCYTE ESTERASE,URINE NEGATIVE (NEGATIVE); NITRITE,URINE NEGATIVE (NEGATIVE); PROTEIN,URINE NEGATIVE (NEGATIVE); URINE SPECIFIC GRAVITY 1.008; UROBILINOGEN,URINE NEGATIVE mg/dL (<2.0)
--- NOTE | 2019-02-25 17:45 | ER Document Report ---
ED General - General Chief Complaint: Nausea/Vomiting Stated Complaint: FEVER Time Seen by Provider: 02/25/19 14:40 Primary Care Provider: PRANAY QUICK PA-C [Primary Care Provider] - Follow up as needed Notes: 73-year-old female presents emergency department for recurrent falls at home and altered mental status. Patient does have a history of dementia but family states that she is not acting the same as usual, she is speaking less, is more confused and is not walking well. They state that she did fall on and broke her nose and her clavicle, she fell again this past Friday and was seen at [facility], at [facility] they told her that her sodium was low at 125, gave her IV fluids and discharged her to home. They stopped her Prozac because they thought it might be causing the low sodium and they also stopped her Xanax because they thought it might be causing confusion. Patient was normal on and then woke up confused and abnormal this morning. Family states again that she is simply more confused, speaking less and walking less than usual. They do note that typically she drinks approximately a gallon of water today however for the past 2 days she has barely been drinking or eating anything at all. TRAVEL OUTSIDE OF THE [place] IN LAST 30 DAYS: No - Related Data Allergies/Adverse Reactions: No Known Allergies Allergy (Verified 02/18/19 18:42) Past Medical History - General Information source: Patient, Relative - Social History Smoking Status: Never Smoker Chew tobacco use (# tins/day): No Frequency of alcohol use: None Drug Abuse: None Family History: Reviewed & Not Pertinent Patient has suicidal ideation: No Patient has homicidal ideation: No - Past Medical History Cardiac Medical History: Reports: Hx Hypercholesterolemia - declines to take meds for it Renal/ Medical History: Denies: Hx Peritoneal Dialysis Psychiatric Medical History: Reports: Hx Dementia Past Surgical History: Reports: Other - Breast biopsy, nerve biopsy Review of Systems - Review of Systems Constitutional: See HPI, Weakness EENT: No symptoms reported Musculoskeletal: See HPI Neurological/Psychological: See HPI -: Yes All other systems reviewed and negative Physical Exam - Vital signs Vitals: Temp Pulse Resp BP Pulse Ox 98.8 F 78 16 133/82 H 98 02/25/19 14:37 02/25/19 14:37 02/25/19 14:37 02/25/19 14:37 02/25/19 14:37 Interpretation: Normal - Notes Notes: GENERAL: Laying in bed, sleeping, able to be awakened for examination, only says hello but does not answer other questions. Significantly less engaged than when I saw her approximately a month ago when her was a patient in the emergency department. HEAD: Normocephalic, atraumatic EYES: Pupils equal, round and reactive to light, extraocular movements intact. ENT: Oral mucosa dry, tongue midline. NECK: Full range of motion, supple, trachea midline. LUNGS: Clear to auscultation bilaterally, no wheezes, rales or rhonchi, no respiratory distress. HEART: Regular rate and rhythm, no murmurs, gallops, rubs. ABDOMEN: Soft, nontender, nondistended, bowel sounds present in all 4 quadrants. EXTREMITIES: Moves all 4 extremities spontaneously, no edema, radial and dorsalis pedis pulses 2/4 bilaterally. No cyanosis. NEUROLOGICAL: Alert, says only yes, does not answer any other questions, no facial droop, moves all 4 extremities spontaneously. SKIN: Warm, Dry, normal turgor. Course - Re-evaluation Re-evalutation: 02/25/19 18:23 CBC unremarkable, CMP shows market hyponatremia with a sodium of 114.2, chloride low at 81, otherwise unremarkable, urinalysis shows small blood, she is very well-hydrated at 1.008, CT scan of the head shows chronic changes but nothing acute, chest x-ray shows the right-sided clavicular fracture but nothing acute. Discussed patient with Dr. Sailnas who agrees to accept the patient to his service for worsening hyponatremia associated with altered mental status. At present I do not think we need to emergently correct her sodium as we know it was 125 2 days ago however she is not safe to be discharged home either as she is having altered mental status and a steadily dropping sodium. Dr. Salinas is in agreement with this and requests an [facility] bed. - Vital Signs Vital signs: Temp Pulse Resp BP Pulse Ox 98.8 F 78 16 143/119 H 100 02/25/19 14:51 02/25/19 14:51 02/25/19 18:00 02/25/19 15:53 02/25/19 16:00 - Laboratory Result Diagrams: 02/25/19 15:38 02/25/19 15:38 Laboratory results interpreted by me: 02/25/19 02/25/19 02/25/19 15:38 15:38 16:40 Lymph % (Auto) 12.5 L Sodium 114.2 L* Chloride 81 L Creatinine 0.41 L AST 57 H Urine Ketones 20 H Urine Blood SMALL H - EKG Interpretation by Me Additional EKG results interpreted by me: 02/25/19 18:26 EKG shows sinus rhythm rate of 79, normal axis, normal intervals, interven tricular conduction delay, no ST segment elevations or depressions, no T wave inversions per my interpretation. Discharge - Discharge Clinical Impression: Hyponatremia Condition: Fair Disposition: ADMITTED INPATIENT Admitting Provider: Brad (Hospitalist) Unit Admitted: IMCU Referrals: PRANAY QUICK PA-C [Primary Care Provider] - Follow up as needed
[2019-02-25] MEDS ORDERED: NORMAL SALINE 1000 ML 1,000 ML IV PRN (18:59)
[2019-02-25] MEDS ORDERED: ZOLPIDEM TARTRATE 5 MG TABLET PO PRN (18:59)
--- NOTE | 2019-02-25 18:59 | PDOC H&P ---
History of Present Illness Admission Date/PCP: 02/25/19 18:01 PRANAY QUICK Patient complains of: Worsening confusion History of Present Illness: GUERO AC is a 73 year old female with dementia, hyperlipidemia and history of Yvonne Henley in 1976, who was brought in by family for evaluation of worsening confusion. Per family patient at baseline is able to respond to simple statements with short responses and often loses her train of thought. However she is able to compose sentences usually. Patient typically is not able to carry out long or detailed conversations and gets often disoriented. Also sounds down. Today patient has been having some nausea and is having difficulty even with constructing simple sentences and appears to be more withdrawn than usual. Apparently, 1 week ago patient fell at home and broke her right clavicle. She was taken to the ER where she was was put in a sling but never really maintains a sling. She subsequently fell again a few days ago and was taken to [facility]'s ER where her sodium was found to be 125. She was given some IV fluids and her Prozac which was started only a month ago was discontinued. Over the past week, patient has not been eating or drinking much fluids. She has had less urination than usual. Patient currently denies any pain. Past Medical History Cardiac Medical History: Reports: Hyperlipidema - declines to take meds for it Psychiatric Medical History: Reports: Dementia Past Surgical History Past Surgical History: Reports: Other - Breast biopsy, nerve biopsy Social History Smoking Status: Never Smoker Electronic Cigarette use?: No - Advance Directive Resuscitation Status: Do Not Resuscitate Family History Family History: Reviewed & Not Pertinent Parental Family History Reviewed: Yes Children Family History Reviewed: NA Sibling(s) Family History Reviewed.: NA Medication/Allergy Home Medications: Alprazolam [Xanax 0.25 mg Tablet] 0.25 mg PO HSP PRN 02/25/19 Allergies/Adverse Reactions: No Known Allergies Allergy (Verified 02/18/19 18:42) Review of Systems ROS unobtainable: Due to mental status Physical Exam Vital Signs: Temp Pulse Resp BP Pulse Ox 98.8 F 78 16 143/119 H 100 02/25/19 14:51 02/25/19 14:51 02/25/19 18:00 02/25/19 15:53 02/25/19 16:00 Intake & Output 02/24/19 02/25/19 02/26/19 06:59 06:59 06:59 Intake Total 1000 Balance 1000 Weight 34.019 kg General appearance: PRESENT: no acute distress, cooperative Head exam: PRESENT: normocephalic Neck exam: ABSENT: JVD Respiratory exam: PRESENT: clear to auscultation candelario, symmetrical, unlabored. ABSENT: tachypnea, wheezes Cardiovascular exam: PRESENT: RRR, +S1, +S2. ABSENT: tachycardia GI/Abdominal exam: PRESENT: normal bowel sounds, soft. ABSENT: ascites, distended, rebound, rigid, tenderness Neurological exam: PRESENT: alert, awake, oriented to person, other - Patient o nly able to answer very brief questions with very short responses but is not able to carry out a conversation. Also, always grasping and playing with her fingers. ABSENT: oriented to place, oriented to time, oriented to situation Results Laboratory Results: 02/25/19 15:38 02/25/19 15:38 02/25/19 02/25/19 02/25/19 15:38 15:38 16:40 WBC 7.2 RBC 4.32 Hgb 13.0 Hct 36.4 MCV 84 MCH 30.1 MCHC 35.7 RDW 12.7 Plt Count 297 Seg Neutrophils % 74.1 Sodium 114.2 L* Potassium 4.0 Chloride 81 L Carbon Dioxide 22 Anion Gap 11 BUN 7 Creatinine 0.41 L Est GFR ( Amer) > 60 Glucose 99 Calcium 9.2 Total Bilirubin 1.1 AST 57 H Alkaline Phosphatase 71 Total Protein 6.4 Albumin 3.8 Urine Color YELLOW Urine Appearance CLEAR Urine pH 7.0 Ur Specific [place] 1.008 Urine Protein NEGATIVE Urine Glucose (UA) NEGATIVE Urine Ketones 20 H Urine Blood SMALL H Urine Nitrite NEGATIVE Ur Leukocyte Esterase NEGATIVE Urine WBC (Auto) 1 Urine RBC (Auto) 4 Impressions: Head CT 02/25/19 14:47 IMPRESSION: CHRONIC MICROVASCULAR ISCHEMIA. NO ACUTE IMAGING FINDINGS IN THE BRAIN. EVIDENCE OF ACUTE STROKE: NO. Chest X-Ray 02/25/19 14:54 IMPRESSION: NO ACUTE RADIOGRAPHIC FINDING IN THE CHEST. Assessment and Plan - Diagnosis (1) Metabolic encephalopathy Is this a current diagnosis for this admission?: Yes Plan: Mental status change characterized by being more withdrawn and communicating less verbally Secondary to severe hyponatremia complicated by underlying dementia (2) Hyponatremia Is this a current diagnosis for this admission?: Yes Plan: Severe hyponatremia seems to be more subacute occurring more than 48 hours ago as was noted to be 125 a few days ago Now 114 Prozac stopped a few days ago. Na was 135 in 11/2018 per daughter. Patient received a liter bolus normal saline in ER and does appear to be hypovolemic I will correct hyponatremia slowly at a rate of <8mEq/24hr period Placed on normal saline infusion with BMPs measured every 4-6 hours Check serum and urine osmolarity, urine sodium, a.m. cortisol and TSH levels If no improvement with normal saline infusions, I will start on hypertonic 3% saline at 20 cc/h with desmopressin 1 mcg every 6 hours to prevent overcorrection. Seizure precautions (3) Concussion Qualifiers: Encounter type: initial encounter Loss of consciousness presence/duration: with LOC of 30 min or less Qualified Code(s): S06.0X1A - Concussion with loss of consciousness of 30 minutes or less, initial encounter Is this a current diagnosis for this admission?: Yes Plan: History of concussion recent fall. Head CT negative on admission. (4) Right clavicle fracture Qualifiers: Encounter type: initial encounter Clavicle location: lateral end Fracture type: closed Fracture alignment: displaced Qualified Code(s): S42.031A - Displaced fracture of lateral end of right clavicle, initial encounter for closed fracture Is this a current diagnosis for this admission?: Yes Plan: Patient has been refusing to wear the sling Tylenol as needed pain. Patient states that she does not have any pain and she has not been requesting pain medication at home. (5) Dementia Is this a current diagnosis for this admission?: Yes Plan: Continue to monitor Monitor for - Time Time Spent with patient: 35 or more minutes
[2019-02-25] MEDS ORDERED: ONDANSETRON 4 MG TAB.RAPDIS PO PRN (19:04)
[2019-02-25] MEDS ORDERED: MAG HYDROX/AL HYDROX/SIMETH SUSP 30 ML UDCUP PO PRN (19:04)
--- NOTE | 2019-02-25 19:12 | EKG REPORT ---
SEVERITY:- OTHERWISE NORMAL ECG - SINUS RHYTHM BASELINE ARTIFACT : Confirmed by: Lena Loaiza MD 25-Feb-2019 19:11:56
--- NOTE | 2019-02-25 20:04 | ADVANCED CARE ---
- Diagnosis (2) Hyponatremia Diagnosis Current: Yes (5) Dementia Diagnosis Current: Yes Attendance: Patient, patient's Tor, daughter Valerie and myself. Resuscitation Status: Do Not Resuscitate Discussion: Discussed who is decision maker for patient and if patient has advanced directive. Daughter and state that they are both co-POAfor patient and patient does have advanced directive. Discussed code status and they both agree on DNR/DNI status. They also acknowledge no intubation even in the abscess of cardiac arrest. Otherwise full medical treatment for patient including minimally invasive procedures such as central line placement if needed for therapy. We will continue to discuss more issues regarding advanced care planning as things progress especially regarding patient's advanced dementia. Time Spent: 20 minutes
[2019-02-25 20:15] LABS: URINE SODIUM 61 mmol/L (30-90)
[2019-02-25 20:28] LABS: OSMOLALITY,URINE 282 mOsm/kg (300-900)
[2019-02-25] MEDS ORDERED: FUROSEMIDE INJ/PF 40 MG/4 ML SDV IV ONE (21:00)
[2019-02-25 22:07] LABS: ANION GAP 11 (5-19); BLOOD UREA NITROGEN 5 mg/dL (7-20); CARBON DIOXIDE 23 mmol/L (22-30); CHLORIDE 88 mmol/L (98-107); GLUCOSE 93 mg/dL (75-110); POTASSIUM 3.7 mmol/L (3.6-5.0)
[2019-02-26 05:21] LABS: CHOLESTEROL 272.73 mg/dL (0-200); TRIGLYCERIDES 78 mg/dL (<150)
[2019-02-26 05:32] LABS: DIRECT LDL 170 mg/dL (<100)
[2019-02-26 08:19] LABS: ANION GAP 10 (5-19); BLOOD UREA NITROGEN 7 mg/dL (7-20); CALCIUM 9.3 mg/dL (8.4-10.2); CARBON DIOXIDE 27 mmol/L (22-30); CHLORIDE 85 mmol/L (98-107); GLUCOSE 94 mg/dL (75-110); POTASSIUM 3.6 mmol/L (3.6-5.0)
[2019-02-26] MEDS: ENOXAPARIN SODIUM INJ 40 MG/0.4 ML DISP.SYRIN SUBCUT SCH (11:11)
[2019-02-26] MEDS ORDERED: ALPRAZOLAM 0.25 MG TABLET PO PRN (11:40)
[2019-02-26 14:30] LABS: ANION GAP 11 (5-19); BLOOD UREA NITROGEN 10 mg/dL (7-20); CALCIUM 9.2 mg/dL (8.4-10.2); CARBON DIOXIDE 26 mmol/L (22-30); CHLORIDE 84 mmol/L (98-107); GLUCOSE 93 mg/dL (75-110); POTASSIUM 3.3 mmol/L (3.6-5.0)
[2019-02-26] MEDS ORDERED: NORMAL SALINE 1000 ML 1,000 ML IV ONE (15:16)
--- NOTE | 2019-02-26 18:07 | PDOC PROGRESS REPORT ---
Subjective Progress Note for:: 02/26/19 Subjective:: Patient looks more alert today. Patient is more conversation today. Patient denies any pain at the moment. Daughter requesting for us to resume Xanax which patient usually takes at home for anxiety. Reason For Visit: SEVERE HYPONATREMIA Physical Exam Vital Signs: Temp Pulse Resp BP Pulse Ox 98.0 F 69 20 122/70 99 02/26/19 15:30 02/26/19 15:30 02/26/19 15:30 02/26/19 15:30 02/26/19 15:30 Intake & Output 02/25/19 02/26/19 02/27/19 06:59 06:59 06:59 Intake Total 1000 240 Output Total 500 Balance 500 240 Weight 39.1 kg 39.1 kg General appearance: PRESENT: no acute distress, cooperative Neck exam: ABSENT: JVD Respiratory exam: PRESENT: clear to auscultation candelario, symmetrical, unlabored. ABSENT: chest wall tenderness, tachypnea, wheezes Cardiovascular exam: PRESENT: RRR, +S1, +S2. ABSENT: tachycardia GI/Abdominal exam: PRESENT: normal bowel sounds, soft. ABSENT: rebound, rigid, tenderness Neurological exam: PRESENT: alert, awake, oriented to person, oriented to place. ABSENT: oriented to time, oriented to situation Results Laboratory Results: 02/25/19 15:38 02/26/19 13:45 02/25/19 02/25/19 02/25/19 15:38 15:38 16:40 Sodium Potassium Chloride Carbon Dioxide Anion Gap BUN Creatinine Est GFR ( Amer) Glucose Serum Osmolality 230 L Calcium Magnesium Triglycerides Cholesterol LDL Cholesterol Direct VLDL Cholesterol HDL Cholesterol TSH 1.86 Urine Osmolality 282 L 02/25/19 02/26/19 02/26/19 21:01 04:24 04:24 Sodium 121.5 L 122.2 L Potassium 3.7 3.6 Chloride 88 L 85 L Carbon Dioxide 23 27 Anion Gap 11 10 BUN 5 L 7 Creatinine 0.46 L 0.61 Est GFR ( Amer) > 60 > 60 Glucose 93 94 Serum Osmolality Calcium 9.0 9.3 Magnesium 2.0 Triglycerides 78 Cholesterol 272.73 H LDL Cholesterol Direct 170 H VLDL Cholesterol 16.0 HDL Cholesterol 55 TSH Urine Osmolality 02/26/19 13:45 Sodium 121.4 L Potassium 3.3 L Chloride 84 L Carbon Dioxide 26 Anion Gap 11 BUN 10 Creatinine 0.58 Est GFR ( Amer) > 60 Glucose 93 Serum Osmolality Calcium 9.2 Magnesium Triglycerides Cholesterol LDL Cholesterol Direct VLDL Cholesterol HDL Cholesterol TSH Urine Osmolality Impressions: Head CT 02/25/19 14:47 IMPRESSION: CHRONIC MICROVASCULAR ISCHEMIA. NO ACUTE IMAGING FINDINGS IN THE BRAIN. EVIDENCE OF ACUTE STROKE: NO. Chest X-Ray 02/25/19 14:54 IMPRESSION: NO ACUTE RADIOGRAPHIC FINDING IN THE CHEST. Assessment and Plan - Diagnosis (1) Metabolic encephalopathy Is this a current diagnosis for this admission?: Yes Plan: Mental status change characterized by being more withdrawn and communicating less verbally but much more improved today Secondary to severe hyponatremia complicated by underlying dementia (2) Hyponatremia Is this a current diagnosis for this admission?: Yes Plan: Severe hypotonic hyponatremia seems to be more subacute occurring more than 48 hours prior to presentation as was noted to be 125 a few days ago 114 on admission. 121.4 today after 24 hours in line with goal correction rate of <8mEq/24hr period Prozac stopped a few days ago. Na was 135 in 11/2018 per daughter. Patient's sodium improved significantly after normal saline bolus yesterday as Na ruddy to 122 and 9 PM last night and has dropped to 121.4 since fluid restricted (despite ur osm >200 and urNa of 60s) Likely confirms suspicion of being induced by hypovolemia/dehydration. I have given another bolus of normal saline and will monitor BMP for sodium response. A.m. cortisol and TSH levels wnl If no improvement with normal saline bolus today, will start salt tabs tomorrow. (3) Concussion Qualifiers: Encounter type: initial encounter Loss of consciousness presence/duration: with LOC of 30 min or less Qualified Code(s): S06.0X1A - Concussion with loss of consciousness of 30 minutes or less, initial encounter Is this a current diagnosis for this admission?: Yes Plan: History of concussion recent fall. Head CT negative on admission. (4) Right clavicle fracture Qualifiers: Encounter type: initial encounter Clavicle location: lateral end Fracture type: closed Fracture alignment: displaced Qualified Code(s): S42.031A - Displaced fracture of lateral end of right clavicle, initial encounter for closed fracture Is this a current diagnosis for this admission?: Yes Plan: Patient has been refusing to wear the sling Tylenol as needed pain. Patient states that she does not have any pain and she has not been requesting pain medication at home. (5) Dementia Is this a current diagnosis for this admission?: Yes Plan: Continue to monitor Monitor for sund - Time Time Spent with patient: 15-24 minutes
[2019-02-26 18:47] LABS: ANION GAP 8 (5-19); BLOOD UREA NITROGEN 9 mg/dL (7-20); CALCIUM 8.7 mg/dL (8.4-10.2); CARBON DIOXIDE 25 mmol/L (22-30); CHLORIDE 89 mmol/L (98-107); GLUCOSE 94 mg/dL (75-110); POTASSIUM 3.2 mmol/L (3.6-5.0)
[2019-02-26] MEDS: ACETAMINOPHEN 325 MG TABLET PO PRN (19:33)
[2019-02-26] MEDS ORDERED: SODIUM CHLORIDE 1 GM TABLET PO SCH (22:00)
[2019-02-26] MEDS: NORMAL SALINE 1000 ML 1,000 ML IV PRN (22:26)
[2019-02-27 04:54] LABS: ANION GAP 8 (5-19); BLOOD UREA NITROGEN 6 mg/dL (7-20); CALCIUM 8.6 mg/dL (8.4-10.2); CARBON DIOXIDE 26 mmol/L (22-30); CHLORIDE 94 mmol/L (98-107); GLUCOSE 88 mg/dL (75-110)
[2019-02-27 05:00] LABS: POTASSIUM 2.9 mmol/L (3.6-5.0)
[2019-02-27] MEDS: POTASSIUM CHLORIDE 20 MEQ/50 ML RTU IV SCH ×2 (05:48→07:27)
[2019-02-27] MEDS ORDERED: POTASSIUM CHLORIDE 10 MEQ TABLET.ER PO ONE (06:00)
[2019-02-27] MEDS: ENOXAPARIN SODIUM INJ 40 MG/0.4 ML DISP.SYRIN SUBCUT SCH (10:38)
[2019-02-27] MEDS: ACETAMINOPHEN 325 MG TABLET PO PRN ×2 (10:40→15:59)
[2019-02-27] MEDS: NORMAL SALINE 1000 ML 1,000 ML IV PRN (10:40)
--- NOTE | 2019-02-27 14:05 | PDOC PROGRESS REPORT ---
Subjective Progress Note for:: 02/27/19 Subjective:: Patient feels well today. Complains of some right shoulder pain. Reason For Visit: SEVERE HYPONATREMIA Physical Exam Vital Signs: Temp Pulse Resp BP Pulse Ox 98.1 F 80 17 141/75 H 98 02/27/19 11:19 02/27/19 11:19 02/27/19 11:19 02/27/19 11:19 02/27/19 11:19 Intake & Output 02/26/19 02/27/19 02/28/19 06:59 06:59 06:59 Intake Total 1000 1580 1070 Output Total 500 Balance 500 1580 1070 Weight 39.1 kg 38.7 kg General appearance: PRESENT: no acute distress, cooperative Neck exam: ABSENT: JVD Respiratory exam: PRESENT: chest wall tenderness, symmetrical, unlabored. ABSENT: tachypnea, wheezes Cardiovascular exam: PRESENT: RRR, +S1, +S2. ABSENT: tachycardia GI/Abdominal exam: PRESENT: normal bowel sounds, soft. ABSENT: rebound, rigid, tenderness Neurological exam: PRESENT: alert, awake, oriented to person, oriented to place. ABSENT: oriented to time, oriented to situation Psychiatric exam: PRESENT: flat affect Results Laboratory Results: 02/25/19 15:38 02/27/19 04:28 02/26/19 02/26/19 02/27/19 13:45 18:15 04:28 Sodium 121.4 L 122.2 L 128.4 L Potassium 3.3 L 3.2 L 2.9 L* Chloride 84 L 89 L 94 L Carbon Dioxide 26 25 26 Anion Gap 11 8 8 BUN 10 9 6 L Creatinine 0.58 0.47 L 0.44 L Est GFR ( Amer) > 60 > 60 > 60 Glucose 93 94 88 Calcium 9.2 8.7 8.6 Magnesium 02/27/19 04:28 Sodium Potassium Chloride Carbon Dioxide Anion Gap BUN Creatinine Est GFR ( Amer) Glucose Calcium Magnesium 2.1 Impressions: Head CT 02/25/19 14:47 IMPRESSION: CHRONIC MICROVASCULAR ISCHEMIA. NO ACUTE IMAGING FINDINGS IN THE BRAIN. EVIDENCE OF ACUTE STROKE: NO. Chest X-Ray 02/25/19 14:54 IMPRESSION: NO ACUTE RADIOGRAPHIC FINDING IN THE CHEST. Assessment and Plan - Diagnosis (1) Hyponatremia Is this a current diagnosis for this admission?: Yes Plan: Severe hypotonic hyponatremia seems to be more subacute occurring more than 48 hours prior to presentation as was noted to be 125 a few days ago 114 on admission. 121.4 today after 24 hours in line with goal correction rate of <8mEq/24hr period Prozac stopped a few days ago. Na was 135 in 11/2018 per daughter. Patient's sodium improved significantly after normal saline bolus yesterday as Na ruddy to 122 and 9 PM last night and has dropped to 121.4 since fluid restricted (despite ur osm >200 and urNa of 60s) Likely confirms suspicion of being induced by hypovolemia/dehydration. I have given another bolus of normal saline and will monitor BMP for sodium r esponse. A.m. cortisol and TSH levels wnl If no improvement with normal saline bolus today, will start salt tabs tomorrow. 02/27/2019-sodium up to 128 today after receiving more IV fluids yesterday. I will recheck sodium later today and continue IV fluids for now. I have had extensive conversation with family at bedside as to the cause of this likely being from dehydration and decreased p.o. intake which are expected sequelae of advancing dementia. We discussed that once patient is discharged, patient may benefit from frequent visits to the PCP for outpatient IV fluids and frequent BMP measurements at least for the next month. This can be done by patient's PCP or her visiting nurse. (2) Metabolic encephalopathy Is this a current diagnosis for this admission?: Yes Plan: Mental status change characterized by being more withdrawn and communicating less verbally but has now resolved. Secondary to severe hyponatremia complicated by underlying dementia (3) Concussion Qualifiers: Encounter type: initial encounter Loss of consciousness presence/duration: with LOC of 30 min or less Qualified Code(s): S06.0X1A - Concussion with loss of consciousness of 30 minutes or less, initial encounter Is this a current diagnosis for this admission?: Yes Plan: History of concussion recent fall. Head CT negative on admission. (4) Right clavicle fracture Qualifiers: Encounter type: initial encounter Clavicle location: lateral end Fracture type: closed Fracture alignment: displaced Qualified Code(s): S42.031A - Displaced fracture of lateral end of right clavicle, initial encounter for closed fracture Is this a current diagnosis for this admission?: Yes Plan: Patient is agreeable to wear the sling today Tylenol as needed pain. (5) Dementia Is this a current diagnosis for this admission?: Yes - Time Time Spent with patient: 15-24 minutes
[2019-02-27 15:46] LABS: ANION GAP 8 (5-19); BLOOD UREA NITROGEN 6 mg/dL (7-20); CALCIUM 8.6 mg/dL (8.4-10.2); CARBON DIOXIDE 23 mmol/L (22-30); CHLORIDE 98 mmol/L (98-107); GLUCOSE 93 mg/dL (75-110)
[2019-02-27 15:54] LABS: POTASSIUM 4.2 mmol/L (3.6-5.0)
[2019-02-27] MEDS ORDERED: NORMAL SALINE 1000 ML 1,000 ML IV ONE (20:00)
[2019-02-28] MEDS: NORMAL SALINE 1000 ML 1,000 ML IV PRN (01:00)
[2019-02-28 05:49] LABS: ANION GAP 7 (5-19); BLOOD UREA NITROGEN 6 mg/dL (7-20); CALCIUM 8.6 mg/dL (8.4-10.2); CARBON DIOXIDE 25 mmol/L (22-30); CHLORIDE 100 mmol/L (98-107); GLUCOSE 82 mg/dL (75-110); POTASSIUM 3.7 mmol/L (3.6-5.0)
[2019-02-28] MEDS: ENOXAPARIN SODIUM INJ 40 MG/0.4 ML DISP.SYRIN SUBCUT SCH (09:51)
--- NOTE | 2019-02-28 11:14 | PDOC DISCHARGE SUMMARY ---
Impression - Admit/DC Date/PCP Admission Date/Primary Care Provider: 02/25/19 18:01 PRANAY QUICK Discharge Date: 02/28/19 - Discharge Diagnosis (1) Hyponatremia Is this a current diagnosis for this admission?: Yes (2) Metabolic encephalopathy Is this a current diagnosis for this admission?: Yes (3) Concussion Is this a current diagnosis for this admission?: Yes (4) Right clavicle fracture Is this a current diagnosis for this admission?: Yes (5) Dementia Is this a current diagnosis for this admission?: Yes (6) Moderate malnutrition Is this a current diagnosis for this admission?: Yes - Assessment Summary: Patient presented with encephalopathy. She was found to be hyponatremic at 114 and subsequently admitted to the [facility] for treatment of hyponatremia. At that time patient was hemodynamically stable. Urinalysis showed normal specific gravity but did show ketones which was in line with patient's family reporting that she has had poor oral intake of food and fluids for several days now. On physical exam, patient examined as hypovolemic. Patient received 1 L normal saline in the ER with improvement of her sodium level on subsequent BMP diana toring to 122. Patient was subsequently fluid restricted in order to prevent overcorrection with the goal of increasing sodium by only 8 mEq per 24-hour period. Patient sodium remained the same with fluid restriction and he went slightly down 121.5. Patient's metabolic encephalopathy started to show improvement with improvements in sodium levels to above 120. Patient subsequently received more normal saline infusions with adequate improvement of her sodium levels while maintaining our adequate correction rate throughout. Patient never required any hypertonic saline as part of her treatment. I do believe the patient's hypovolemic hypotonic hyponatremia was as a result of decreased oral intake. I have advised the family that patient will need weekly monitoring of her BMP as still already have a home visiting nurse who can deliver such blood work. This will need to be monitored by her primary care provider and she may require to go into the provider's office for normal saline infusions if needed. I have explained that the decline in her feeding is an expected progressive sequelae of her underlying dementia. Patient's and daughter have been very involved in her care and would like to try an appetite stimulant as well. I have written a prescription for Megace and explained side effects and benefit profile. Patient is also to continue to remain off Prozac as it could further lower her sodium level. Patient also had a recent right clavicle fracture from a fall which was addressed at an outside hospital. Patient is to be taken Tylenol as needed for pain and a sling has been provided. Patient is being discharged in stable condition and his sodium is up to 132 today. - Additional Information Resuscitation Status: Do Not Resuscitate Referrals: PRANAY QUICK PA-C [Primary Care Provider] - Follow up as needed Prescriptions: Megestrol Acetate [Megace Es] 625 mg PO DAILY 30 Days oral.susp Home Medications: Alprazolam [Xanax 0.5 mg Tablet] 0.5 mg PO DAILYP PRN 02/25/19 Acetaminophen [Tylenol 325 mg Tablet] 650 mg PO Q4HP PRN tablet 02/28/19 Megestrol Acetate [Megace Es] 625 mg PO DAILY 30 Days oral.susp 02/28/19 History of Present Illiness History of Present Illness: GUERO CA is a 73 year old female with dementia, hyperlipidemia and history of Yvonne Henley in 1976, who was brought in by family for evaluation of worsening confusion. Per family patient at baseline is able to respond to simple statements with short responses and often loses her train of thought. However she is able to compose sentences usually. Patient typically is not able to carry out long or detailed conversations and gets often disoriented. Also sounds down. Today patient has been having some nausea and is having difficulty even with constructing simple sentences and appears to be more withdrawn than usual. Apparently, 1 week ago patient fell at home and broke her right clavicle. She was taken to the ER where she was was put in a sling but never really maintains a sling. She subsequently fell again a few days ago and was taken to [facility]'s ER where her sodium was found to be 125. She was given some IV fluids and her Prozac which was started only a month ago was discontinued. Over the past week, patient has not been eating or drinking much fluids. She has had less urination than usual. Patient currently denies any pain. Physical Exam Vital Signs: Temp Pulse Resp BP Pulse Ox 98.4 F 77 20 156/79 H 99 02/28/19 00:05 02/28/19 07:00 02/28/19 00:05 02/28/19 00:05 02/28/19 00:05 Intake & Output 02/27/19 02/28/19 03/01/19 06:59 06:59 06:59 Intake Total 1580 3670 Output Total 1350 Balance 1580 2320 Weight 38.7 kg 36.8 kg General appearance: PRESENT: no acute distress, cooperative, thin Neck exam: ABSENT: JVD Respiratory exam: PRESENT: clear to auscultation candelario Cardiovascular exam: PRESENT: +S1, +S2 GI/Abdominal exam: PRESENT: normal bowel sounds Neurological exam: PRESENT: alert, awake Results Laboratory Results: WBC 7.2 10^3/uL (4.0-10.5) 02/25/19 15:38 RBC 4.32 10^6/uL (3.72-5.28) 02/25/19 15:38 Hgb 13.0 g/dL (12.0-15.5) 02/25/19 15:38 Hct 36.4 % (36.0-47.0) 02/25/19 15:38 MCV 84 fl (80-97) 02/25/19 15:38 MCH 30.1 pg (27.0-33.4) 02/25/19 15:38 MCHC 35.7 g/dL (32.0-36.0) 02/25/19 15:38 RDW 12.7 % (11.5-14.0) 02/25/19 15:38 Plt Count 297 10^3/uL (150-450) 02/25/19 15:38 Lymph % (Auto) 12.5 % (13-45) L 02/25/19 15:38 [place] % (Auto) 12.6 % (3-13) 02/25/19 15:38 Eos % (Auto) 0.4 % (0-6) 02/25/19 15:38 Baso % (Auto) 0.4 % (0-2) 02/25/19 15:38 Absolute Neuts (auto) 5.3 10^3/uL (1.7-8.2) 02/25/19 15:38 Absolute Lymphs (auto) 0.9 10^3/uL (0.5-4.7) 02/25/19 15:38 Absolute Monos (auto) 0.9 10^3/uL (0.1-1.4) 02/25/19 15:38 Absolute Eos (auto) 0.0 10^3/uL (0.0-0.6) 02/25/19 15:38 Absolute Basos (auto) 0.0 10^3/uL (0.0-0.2) 02/25/19 15:38 Seg Neutrophils % 74.1 % (42-78) 02/25/19 15:38 Sodium 131.9 mmol/L (137-145) L 02/28/19 04:31 Potassium 3.7 mmol/L (3.6-5.0) 02/28/19 04:31 Chloride 100 mmol/L (98-107) 02/28/19 04:31 Carbon Dioxide 25 mmol/L (22-30) 02/28/19 04:31 Anion Gap 7 (5-19) 02/28/19 04:31 BUN 6 mg/dL (7-20) L 02/28/19 04:31 Creatinine 0.40 mg/dL (0.52-1.25) L 02/28/19 04:31 Est GFR ( Amer) > 60 (>60) 02/28/19 04:31 Est GFR (MDRD) Non-Af > 60 (>60) 02/28/19 04:31 Glucose 82 mg/dL (75-110) 02/28/19 04:31 Serum Osmolality 230 mOsm/kg (275-301) L 02/25/19 15:38 Calcium 8.6 mg/dL (8.4-10.2) 02/28/19 04:31 Magnesium 2.1 mg/dL (1.6-2.3) 02/27/19 04:28 Total Bilirubin 1.1 mg/dL (0.2-1.3) 02/25/19 15:38 Direct Bilirubin 0.1 mg/dL (0.0-0.4) 02/25/19 15:38 Neonat Total Bilirubin Not Reportable 02/25/19 15:38 Neonat Direct Bilirubin Not Reportable 02/25/19 15:38 Neonat Indirect Bili Not Reportable 02/25/19 15:38 AST 57 U/L (14-36) H 02/25/19 15:38 ALT 13 U/L (<35) 02/25/19 15:38 Alkaline Phosphatase 71 U/L (38-126) 02/25/19 15:38 Total Protein 6.4 g/dL (6.3-8.2) 02/25/19 15:38 Albumin 3.8 g/dL (3.5-5.0) 02/25/19 15:38 Triglycerides 78 mg/dL (<150) 02/26/19 04:24 Cholesterol 272.73 mg/dL (0-200) H 02/26/19 04:24 LDL Cholesterol Direct 170 mg/dL (<100) H 02/26/19 04:24 VLDL Cholesterol 16.0 mg/dL (10-31) 02/26/19 04:24 HDL Cholesterol 55 mg/dL (>40) 02/26/19 04:24 TSH 1.86 uIU/mL (0.47-4.68) 02/25/19 15:38 Cortisol AM Sample 15.90 ug/dL (4.46-22.7) 02/26/19 04:24 Urine Color YELLOW 02/25/19 16:40 Urine Appearance CLEAR 02/25/19 16:40 Urine pH 7.0 (5.0-9.0) 02/25/19 16:40 Ur Specific [place] 1.008 02/25/19 16:40 Urine Protein NEGATIVE mg/dL (NEGATIVE) 02/25/19 16:40 Urine Glucose (UA) NEGATIVE mg/dL (NEGATIVE) 02/25/19 16:40 Urine Ketones 20 mg/dL (NEGATIVE) H 02/25/19 16:40 Urine Blood SMALL (NEGATIVE) H 02/25/19 16:40 Urine Nitrite NEGATIVE (NEGATIVE) 02/25/19 16:40 Urine Bilirubin NEGATIVE (NEGATIVE) 02/25/19 16:40 Urine Urobilinogen NEGATIVE mg/dL (<2.0) 02/25/19 16:40 Ur Leukocyte Esterase NEGATIVE (NEGATIVE) 02/25/19 16:40 Urine WBC (Auto) 1 /HPF 02/25/19 16:40 Urine RBC (Auto) 4 /HPF 02/25/19 16:40 Urine Mucus (Auto) MANY /LPF 02/25/19 16:40 Urine Osmolality 282 mOsm/kg (300-900) L 02/25/19 16:40 Urine Sodium 61 mmol/L (30-90) 02/25/19 16:40 Urine Ascorbic Acid NEGATIVE (NEGATIVE) 02/25/19 16:40 Impressions: Head CT 12/05/19 14:47 IMPRESSION: CHRONIC MICROVASCULAR ISCHEMIA. NO ACUTE IMAGING FINDINGS IN THE BRAIN. EVIDENCE OF ACUTE STROKE: NO. Chest X-Ray 02/25/19 14:54 IMPRESSION: NO ACUTE RADIOGRAPHIC FINDING IN THE CHEST. Plan Time Spent: Less than 30 Minutes Stroke Is this a Stroke Patient?: No Acute Heart Failure - Is this a Heart Failure Patient?: No
[2019-02-28 11:26] VITALS: BP 117/64
== END 2019-02-28 12:13 | disposition home or self-care (01) | DRG 640 ==
LOC: ER 14:31 → EH 18:01 → 3N 22:08 → 3W 02-27 08:58
PROVIDERS: ADMIT Internal Medicine; ATTEND Internal Medicine
DX: E87.1 Hypo-osmolality and hyponatremia (principal); G93.41 Metabolic encephalopathy; E44.0 Moderate protein-calorie malnutrition; F03.90 Unspecified dementia, unspecified severity, without behavioral disturbance, psychotic disturbance, mood disturbance, and anxiety; Z66 Do not resuscitate; S42.031D Displaced fracture of lateral end of right clavicle, subsequent encounter for fracture with routine healing; R29.6 Repeated falls; E78.00 Pure hypercholesterolemia, unspecified; Z91.19 Patient's noncompliance with other medical treatment and regimen
CPT/HCPCS: 36415; 70450; 71045; 80048; 80053; 80061; 81001; 82533; 83735; 83930; 83935; 84300; 84443; 85025; 93005; 93010; 96361; 96374; 99285; J1940; J2405; J3480; J3490; J7030

== ENCOUNTER 2019-03-26 09:43 | Emergency (ER) | payer MEDICARE ==
[2019-03-26] MEDS ORDERED: NORMAL SALINE 500 ML IV PRN (10:12)
--- NOTE | 2019-03-26 10:14 | ER Document Report ---
ED Medical Screen (RME) - General Chief Complaint: Abnormal Lab Results Stated Complaint: ABNORMAL LABS Time Seen by Provider: 03/26/19 10:06 Primary Care Provider: PRANAY QUICK PA-C [Primary Care Provider] - Follow up as needed Notes: Patient is a 73-year-old female with a history of hyponatremia and dementia who presents to the emergency department with increased confusion, as per . Patient was supposed to have her sodium drawn today outpatient, but they attempted 3 times and were unable to obtain labs. They were then referred here to the emergency department. Exam: Thin in appearance. I have greeted and performed a rapid initial assessment of this patient. A comprehensive ED assessment and evaluation of the patient, analysis of test results and completion of medical decision making process will be conducted by an additional ED providers. TRAVEL OUTSIDE OF THE [place] IN LAST 30 DAYS: No - Related Data Allergies/Adverse Reactions: No Known Allergies Allergy (Verified 03/26/19 10:05) Past Medical History - Past Medical History Cardiac Medical History: Reports: Hx Hypercholesterolemia - declines to take meds for it Renal/ Medical History: Denies: Hx Peritoneal Dialysis Psychiatric Medical History: Reports: Hx Dementia Past Surgical History: Reports: Other - Breast biopsy, nerve biopsy Physical Exam - Vital signs Vitals: Pulse Resp BP Pulse Ox 137 H 18 93/59 L 88 L 03/26/19 10:03/26/19 10:03/26/19 10:03/26/19 10:04 Course - Vital Signs Vital signs: Temp Pulse Resp BP Pulse Ox 137 H 18 93/59 L 88 L 03/26/19 10:03/26/19 10:03/26/19 10:03/26/19 10:04 Doctor's Discharge - Discharge Referrals: PRANAY QUICK PA-C [Primary Care Provider] - Follow up as needed
--- NOTE | 2019-03-26 10:45 | RADIOLOGY REPORT (SQ) ---
EXAM DESCRIPTION: CT HEAD WITHOUT COMPLETED DATE/TIME: 03/26/2019 10:30 am REASON FOR STUDY: increased confusion COMPARISON: 02/25/2019 TECHNIQUE: Axial images acquired through the brain without intravenous contrast. Images reviewed wi th bone, brain and subdural windows. Additional sagittal and coronal reconstructions were generated. Images stored on PACS. All CT scanners at this facility use dose modulation, iterative reconstruction, and/or weight based d osing when appropriate to reduce radiation dose to as low as reasonably achievable (ALARA). [facility]: Dose Right [facility]: CareDose [facility]: Dose Right [facility]: Teradose 4D [facility]: [employer] RADIATION DOSE: CT Rad equipment meets quality standard of care and radiation dose reduction techniq ues were employed. CTDIvol: 53.2 mGy. DLP: 991 mGy-cm.mGy. LIMITATIONS: None. FINDINGS: VENTRICLES: Appropriate for patient age CEREBRUM: No masses. No hemorrhage. No midline shift. Areas of low density in the white matter mos t likely due to chronic micro-vascular ischemic change. No evidence for acute infarction. CEREBELLUM: No masses. No hemorrhage. No alteration of density. No evidence for acute infarction. EXTRAAXIAL SPACES: Age-related involutional change. No fluid collections. No masses. ORBITS AND GLOBE: No intra- or extraconal masses. Normal contour of globe without masses. CALVARIUM: No fracture. PARANASAL SINUSES: Minimal ethmoid air cell mucosal thickening. Remaining sinuses are clear. SOFT TISSUES: No mass or hematoma. Scattered vascular calcifications. OTHER: No other significant finding. IMPRESSION: STABLE CHRONIC CHANGES OF ATROPHY AND MICROVASCULAR ISCHEMIA. NO ACUTE PROCESS. EVIDENCE OF ACUTE STROKE: NO. TECHNICAL DOCUMENTATION: JOB ID: [id number] Quality ID # [id number]: Final reports with documentation of one or more dose reduction techniques (e.g., Au tomated exposure control, adjustment of the mA and/or kV according to patient size, use of iterative reconstruction technique) 2010 [employer]- All Rights Reserved Reading location - IP/workstation name: [email or web address]
--- NOTE | 2019-03-26 10:52 | RADIOLOGY REPORT (SQ) ---
EXAM DESCRIPTION: CHEST SINGLE VIEW COMPLETED DATE/TIME: 03/26/2019 10:35 am REASON FOR STUDY: increased confusion COMPARISON: 02/25/2019 EXAM PARAMETERS: NUMBER OF VIEWS: One view. TECHNIQUE: Single frontal radiographic view of the chest acquired. RADIATION DOSE: NA LIMITATIONS: None. FINDINGS: LUNGS AND PLEURA: Emphysema with hyperinflation. No focal consolidation, pleural effusion or pneumothorax. MEDIASTINUM AND HILAR STRUCTURES: No masses. Contour normal. HEART AND VASCULAR STRUCTURES: Normal heart size. Aortic atherosclerosis. BONES: No acute findings. HARDWARE: None in the chest. OTHER: Likely hiatal hernia. IMPRESSION: Emphysematous change without evidence of acute cardiopulmonary process. TECHNICAL DOCUMENTATION: JOB ID: [id number] [employer]- All Rights Reserved Reading location - IP/workstation name: [email or web address]
[2019-03-26 11:42] LABS: APPEARANCE,URINE CLEAR; BILIRUBIN,URINE NEGATIVE (NEGATIVE); COLOR,URINE COLORLESS; GLUCOSE, URINE NEGATIVE (NEGATIVE); KETONES,URINE NEGATIVE (NEGATIVE); LEUKOCYTE ESTERASE,URINE NEGATIVE (NEGATIVE); NITRITE,URINE NEGATIVE (NEGATIVE); PROTEIN,URINE NEGATIVE (NEGATIVE); URINE SPECIFIC GRAVITY 1.001; UROBILINOGEN,URINE NEGATIVE mg/dL (<2.0)
[2019-03-26 12:05] LABS: ABSOLUTE BASOPHILS # (AUTO) 0.1 10^3/uL (0.0-0.2); ABSOLUTE EOSINOPHILS # (AUTO) 0.1 10^3/uL (0.0-0.6); ABSOLUTE LYMPHOCYTES (AUTO) 1.5 10^3/uL (0.5-4.7); ABSOLUTE MONOCYTES (AUTO) 0.6 10^3/uL (0.1-1.4); ABSOLUTE NEUT (AUTO) 3.6 10^3/uL (1.7-8.2); BASOPHILS % (AUTO) 1.4 % (0-2); EOSINOPHILS % (AUTO) 1.2 % (0-6); HEMATOCRIT 38.3 % (36.0-47.0); HEMOGLOBIN 13.1 g/dL (12.0-15.5); LYMPHOCYTES % (AUTO) 25.3 % (13-45); MEAN CORPUSCULAR HEMOGLOBIN 29.9 pg (27.0-33.4); MEAN CORPUSCULAR HGB CONC 34.3 g/dL (32.0-36.0); MEAN CORPUSCULAR VOLUME 87 fl (80-97); PLATELET COUNT 312 10^3/uL (150-450); RED BLOOD COUNT 4.39 10^6/uL (3.72-5.28); RED CELL DISTRIBUTION WIDTH 13.5 % (11.5-14.0); SEGMENTED NEUTROPHILS % (AUTO) 62.1 % (42-78); TOTAL CELLS COUNTED % (AUTO) 100 %; WHITE BLOOD COUNT 5.7 10^3/uL (4.0-10.5)
[2019-03-26 12:19] LABS: ALBUMIN 3.8 g/dL (3.5-5.0); ALKALINE PHOSPHATASE 96 U/L (38-126); ANION GAP 5 (5-19); ASPARTATE AMINO TRANSFERASE 55 U/L (14-36); BILIRUBIN,DIRECT 0.2 mg/dL (0.0-0.4); BILIRUBIN,TOTAL 0.4 mg/dL (0.2-1.3); BLOOD UREA NITROGEN 13 mg/dL (7-20); CALCIUM 9.5 mg/dL (8.4-10.2); CARBON DIOXIDE 31 mmol/L (22-30); CHLORIDE 102 mmol/L (98-107); GLUCOSE 81 mg/dL (75-110); POTASSIUM 4.2 mmol/L (3.6-5.0); TOTAL PROTEIN 6.8 g/dL (6.3-8.2)
--- NOTE | 2019-03-26 14:03 | ER Document Report ---
ED General - General Chief Complaint: Abnormal Lab Results Stated Complaint: ABNORMAL LABS Time Seen by Provider: 03/26/19 10:06 Primary Care Provider: PRANAY QUICK PA-C [ALLIED HEALTH PROFESSIONAL] - Follow up as needed Mode of Arrival: Ambulatory Information source: Patient, Parent, Relative Cannot obtain history due to: Dementia Notes: Ms. Tao is a 73-year-old female patient who has dementia. Her dementia causes her to sometimes have wide swings in her affect from. Today she was acting somewhat mean to what her and the visiting nurse thought that her laboratories may be abnormal such as a sodium being low or urinary tract infection. Therefore she advised him to come to the emergency room when she was unable to obtain blood sample at this at the residents. There is been no fever chills nausea vomiting headache or any constitutional symptoms otherwise. TRAVEL OUTSIDE OF THE [place] IN LAST 30 DAYS: No - HPI Onset: Other - Ms. Tao has chronic dementia of longstanding nature at this time. Behavior this a.m. was not different than on other days. Severity: Moderate Similar symptoms previously: Yes Recently seen / treated by doctor: No - Related Data Allergies/Adverse Reactions: No Known Allergies Allergy (Verified 03/26/19 10:05) Home Medications: [facility] Past Medical History - Social History Smoking Status: Never Smoker Chew tobacco use (# tins/day): No Frequency of alcohol use: None Drug Abuse: None Lives with: Family Family History: Reviewed & Not Pertinent Patient has suicidal ideation: No Patient has homicidal ideation: No - Past Medical History Cardiac Medical History: Reports: Hx Hypercholesterolemia - declines to take meds for it Renal/ Medical History: Denies: Hx Peritoneal Dialysis Psychiatric Medical History: Reports: Hx Dementia Past Surgical History: Reports: Other - Breast biopsy, nerve biopsy Review of Systems - Review of Systems Neurological/Psychological: Dementia Physical Exam - Vital signs Vitals: Pulse Resp BP Pulse Ox 137 H 18 93/59 L 88 L 03/26/19 10:04 03/26/19 10:04 03/26/19 10:04 03/26/19 10:04 Interpretation: Normal - General General appearance: Appears well, Alert - HEENT Head: Normocephalic, Atraumatic Eyes: Normal Pupils: PERRL - Respiratory Respiratory status: No respiratory distress Chest status: Nontender Breath sounds: Normal Chest palpation: Normal - Cardiovascular Rhythm: Regular Heart sounds: Normal auscultation Murmur: No - Abdominal Inspection: Normal Distension: No distension Bowel sounds: Normal Tenderness: Nontender Organomegaly: No organomegaly - Back Back: Normal, Nontender - Extremities General upper extremity: Normal inspection, Nontender, Normal color, Normal ROM, Normal temperature General lower extremity: Normal inspection, Nontender, Normal color, Normal ROM, Normal temperature, Normal weight bearing. No: Vannessa's sign - Neurological Neuro grossly intact: Yes Cognition: Normal Orientation: AAOx4 [place] Coma Scale Eye Opening: Spontaneous Amy Coma Scale Verbal: Oriented Amy Coma Scale Motor: Obeys Commands [place] Coma Scale Total: 15 Speech: Normal Motor strength normal: LUE, RUE, LLE, RLE Sensory: Normal - Psychological Associated symptoms: Normal affect, Normal mood - Skin Skin Temperature: Warm Skin Moisture: Dry Skin Color: Normal Course - Re-evaluation Re-evalutation: 03/26/19 14:41 Patient is able to carry on a conversation and appears to be pleasant at the moment. Discussed with that her laboratory values are completely normal in terms of urinalysis not showing any signs of infection or dehydration. Also her sodium is 138. Complete CBC does not show any signs of infection or any anemia. Inasmuch as dementia has variances in different days in time what occurred this morning was not related to any infection or metabolic problems. - Vital Signs Vital signs: Temp Pulse Resp BP Pulse Ox 137 H 13 141/83 H 100 03/26/19 10:04 03/26/19 13:01 03/26/19 13:00 03/26/19 13:01 - Laboratory Result Diagrams: 03/26/19 11:34 03/26/19 11:34 Laboratory results interpreted by me: 03/26/19 11:34 Carbon Dioxide 31 H AST 55 H Discharge - Discharge Clinical Impression: Dementia Qualifiers: Dementia type: unspecified type Condition: Stable Disposition: HOME, SELF-CARE Additional Instructions: Dementia The exam shows a decrease in mental ability called dementia. Signs of demen tia include a gradual loss of memory and a decreased ability to reason and solve problems. Personality changes, hostility, lack of self-care, and loss of bladder or bowel control are later signs of dementia. In these later stages, patients may become confused, lost, fearful, or agitated, even in familiar places. Alzheimer's disease is the most common type of dementia. It has no known cause or specific treatment. Other causes include alcohol and drug abuse, medication effects (especially tranquilizers and sleeping pills), strokes, head injuries, and brain tumors. Sometimes severe depression in an elderly person is mistaken for dementia, and this can be treated if recognized. A complete medical evaluation and ongoing care with a doctor is important. Most people with dementia need help or supervision with daily living. Some may be able to live independently with occasional help; others require foster care or even mcc placement. Alcohol, sedatives, and antihistamines may make the symptoms worse and should be avoided. Alzheimer's disease support groups are available in some communities and can be very valuable to the entire family. Prescription medication can ease the symptoms of Alzheimer's disease in some patients. Please arrange for medical follow-up. Return here if there is a sudden change in mental function, inability to move an arm or leg, inability to speak, fever, or any other significant change. Continue same medications. Follow-up with primary care physician as directed. Referrals: PRANAY QUICK PA-C [ALLIED HEALTH PROFESSIONAL] - Follow up as needed
[2019-03-26 15:11] VITALS: BP 142/78
--- NOTE | 2019-03-26 19:31 | EKG REPORT ---
SEVERITY:- ABNORMAL ECG - SINUS RHYTHM RIGHT ATRIAL ABNORMALITY PROBABLE LEFT VENTRICULAR HYPERTROPHY PROBABLE INFERIOR INFARCT, OLD LATERAL INFARCT, OLD : Confirmed by: Philippe Vargas MD 26-Mar-2019 19:30:33
== END 2019-03-26 15:10 | disposition home or self-care (01) ==
LOC: ER 09:43
DX: F03.90 Unspecified dementia, unspecified severity, without behavioral disturbance, psychotic disturbance, mood disturbance, and anxiety (principal); R79.89 Other specified abnormal findings of blood chemistry
CPT/HCPCS: 99284; 96360; 36415; 85025; 80053; 81001; 71045; 70450; 93005; 93010; J7040

== ENCOUNTER 2019-05-15 05:55 | Emergency (ER) | payer MEDICARE ==
[2019-05-15 07:26] LABS: ABSOLUTE LYMPHOCYTES (AUTO) 1.1 10^3/uL (0.5-4.7); ABSOLUTE MONOCYTES (AUTO) 0.5 10^3/uL (0.1-1.4); ABSOLUTE NEUT (AUTO) 3.6 10^3/uL (1.7-8.2); BASOPHILS % (AUTO) 0.7 % (0-2); EOSINOPHILS % (AUTO) 0.5 % (0-6); HEMATOCRIT 38.5 % (36.0-47.0); HEMOGLOBIN 13.6 g/dL (12.0-15.5); LYMPHOCYTES % (AUTO) 21.3 % (13-45); MEAN CORPUSCULAR HEMOGLOBIN 30.4 pg (27.0-33.4); MEAN CORPUSCULAR HGB CONC 35.3 g/dL (32.0-36.0); MEAN CORPUSCULAR VOLUME 86 fl (80-97); MONOCYTES % (AUTO) 10.1 % (3-13); PLATELET COUNT 238 10^3/uL (150-450); RED BLOOD COUNT 4.47 10^6/uL (3.72-5.28); SEGMENTED NEUTROPHILS % (AUTO) 67.4 % (42-78); TOTAL CELLS COUNTED % (AUTO) 100 %; WHITE BLOOD COUNT 5.4 10^3/uL (4.0-10.5)
--- NOTE | 2019-05-15 07:43 | ER Document Report ---
Entered by KARISHMA HOLMAN SCRIBE 05/15/19 0656 Acting as scribe for:MATILDA RABAGO MD ED General - General Chief Complaint: Abdominal Pain Stated Complaint: ABDOMINAL PAIN Time Seen by Provider: 05/15/19 06:37 Primary Care Provider: CHERYL HEARN PA-C [Primary Care Provider] - Follow up as needed Information source: Patient Notes: This pleasantly demented 73-year-old female patient presents to the emergency department today with complaints of abdominal pain for the last few weeks. Family at bedside reports that the patient had some sort of abdominal ultrasound performed at [facility] last week but they have not gotten the results back yet. Family reports that the pain seems to change from the right upper quadrant to the left upper quadrant depending on the day. Family reports that the patient's bowel regimen has been at her baseline which is a bowel movement about every other day. Patient is demented and family members are not the best historians either so history is limited. Pertinent PMHx/PSHx: Dementia - additional PMHx/PSHx not pertinent to this visit as recorded. PCP: Cheryl Seals TRAVEL OUTSIDE OF THE [place] IN LAST 30 DAYS: No - Related Data Allergies/Adverse Reactions: No Known Allergies Allergy (Verified 03/26/19 10:05) Home Medications: zoloft 1.5 ml bid. xanax 0.25 mg as needed Past Medical History - General Information source: Patient, COUNT INCLUDES THE [facility] Records - Social History Smoking Status: Never Smoker Cigarette use (# per day): No Frequency of alcohol use: None Drug Abuse: None Occupation: retired Lives with: Family Family History: Reviewed & Not Pertinent Patient has suicidal ideation: No Patient has homicidal ideation: No - Past Medical History Cardiac Medical History: Reports: Hx Hypercholesterolemia Psychiatric Medical History: Reports: Hx Dementia Past Surgical History: Reports: Other - Breast biopsy, nerve biopsy Review of Systems - Review of Systems Constitutional: No symptoms reported EENT: No symptoms reported Cardiovascular: No symptoms reported Respiratory: No symptoms reported Gastrointestinal: See HPI, Abdominal pain. denies: Constipation Genitourinary: No symptoms reported Female Genitourinary: No symptoms reported Musculoskeletal: No symptoms reported Skin: No symptoms reported Hematologic/Lymphatic: No symptoms reported Neurological/Psychological: No symptoms reported -: Yes All other systems reviewed and negative Physical Exam - Vital signs Vitals: Temp Pulse Resp BP Pulse Ox 97.4 F 84 20 139/79 H 98 05/15/19 06:03 05/15/19 06:03 05/15/19 06:03 05/15/19 06:03 05/15/19 06:03 - Notes Notes: Physical Exam: General: Alert, appears well. HEENT: Normocephalic. Atraumatic. PERRL. Extraocular movements intact. Oropharynx clear. Neck: Supple. Non-tender. Respiratory: No respiratory distress. Clear and equal breath sounds bilaterally. Cardiovascular: Regular rate and rhythm. Abdominal: Winces with palpation of the RLQ, LLQ, and suprapubic region, no upper abdominal tenderness. Hyperactive bowel sounds. No distension. Back: No gross abnormalities. Extremities: Moves all four extremities. Upper extremities: Normal inspection. Normal ROM. Lower extremities: Normal inspection. No edema. Normal ROM. Neurological: Demented at baseline per family. Unable to provide any meaningful history which is not unusual per family. Psychological: Normal affect. Normal Mood. Skin: Warm. Dry. Normal color. Course - Re-evaluation Re-evalutation: 05/15/19 08:44 The patient's white blood cell count is low normal with no suggestion of infection. The urine is clean. Chemistries and lipase are normal. Acute abdominal series shows a lot of bowel gas in the small bowel, and a lot of stool in the colon. Particularly in the pelvis region. I suspect the patient's discomfort today is related to constipation. She does not take anything at home to help keep her bowels moving. Discussed this with the family, recommend taking some mag citrate today, and taking MiraLAX every day. Patient follow-up with primary care to find out what the outpatient gallbladder ultrasound showed. - Vital Signs Vital signs: Temp Pulse Resp BP Pulse Ox 97.4 F 84 20 139/79 H 98 05/15/19 06:03 05/15/19 06:03 05/15/19 06:03 05/15/19 06:03 05/15/19 06:03 - Laboratory Result Diagrams: 05/15/19 07:00 05/15/19 07:00 Laboratory results interpreted by me: 05/15/19 07:00 Carbon Dioxide 33 H Creatinine 0.49 L AST 69 H - Diagnostic Test Radiology reviewed: Image reviewed, Reports reviewed - Acute abdominal series does not show any obstruction or other abnormality. Discharge - Discharge Clinical Impression: Abdominal pain Qualifiers: Abdominal location: generalized Qualified Code(s): R10.84 - Generalized abdominal pain Constipation Qualifiers: Constipation type: unspecified constipation type Qualified Code(s): K59.00 - Constipation, unspecified Condition: Stable Disposition: HOME, SELF-CARE Additional Instructions: Abdominal Pain: There are many causes of abdominal pain. Pain can mean a serious problem requiring surgery (such as appendicitis). It can also be an innocent problem that goes away on its own (such as a viral infection). Often, time must pass to determine the cause of pain. The physician does not feel that hospitalization is necessary, at present. Things may change within the next 24 hours. Call the doctor or come back for re-examination if any problems occur, such as: (1) Pain that becomes more severe, steady, or becomes concentrated in one specific area. Also, pain that is more severe with movement or coughing. (2) Vomiting that persists or becomes more frequent. (3) Blood in the vomitus, urine, or bowel movements. Blood in the stool may have a tarry or black appearance. (4) Shaking chills or fever greater than 100 degrees F. (5) The abdomen becomes more distended or swollen. (6) Bowel movements cease. (7) Failure to improve as expected. The evaluation today does not suggest an infectious process causing the abdominal pain. The x-rays do suggest that constipation may be causing the discomfort. Drink a few ounces of magnesium citrate today, and follow that with several glasses of water. Start taking MiraLAX with several glasses of water every day. If the abdominal discomfort continues after you have been having several bowel movements, you should recheck with your primary care provider for further evaluation. RETURN TO THE EMERGENCY ROOM IF ANY NEW OR WORSENING SYMPTOMS. Referrals: CHERYL HEARN PA-C [Primary Care Provider] - Follow up as needed Scribe Attestation: 05/15/19 07:24 I personally performed the services described in the documentation, reviewed and edited the documentation which was dictated to the scribe in my presence, and it accurately records my words and actions. I personally performed the services described in the documentation, reviewed and edited the documentation which was dictated to the scribe in my presence, and it accurately records my words and actions.
[2019-05-15 07:46] LABS: ALBUMIN 4.1 g/dL (3.5-5.0); ALKALINE PHOSPHATASE 87 U/L (38-126); ANION GAP 6 (5-19); ASPARTATE AMINO TRANSFERASE 69 U/L (14-36); BILIRUBIN,DIRECT 0.2 mg/dL (0.0-0.4); BILIRUBIN,TOTAL 0.5 mg/dL (0.2-1.3); BLOOD UREA NITROGEN 12 mg/dL (7-20); CALCIUM 9.5 mg/dL (8.4-10.2); CARBON DIOXIDE 33 mmol/L (22-30); CHLORIDE 99 mmol/L (98-107); GLUCOSE 92 mg/dL (75-110); POTASSIUM 4.4 mmol/L (3.6-5.0); TOTAL PROTEIN 7.1 g/dL (6.3-8.2)
[2019-05-15 08:11] LABS: AMORPHOUS SEDIMENT,URINE TRACE /HPF; APPEARANCE,URINE SLIGHTLY-CLOUDY; BILIRUBIN,URINE NEGATIVE (NEGATIVE); COLOR,URINE YELLOW; GLUCOSE, URINE NEGATIVE (NEGATIVE); KETONES,URINE NEGATIVE (NEGATIVE); LEUKOCYTE ESTERASE,URINE NEGATIVE (NEGATIVE); NITRITE,URINE NEGATIVE (NEGATIVE); PROTEIN,URINE NEGATIVE (NEGATIVE); URINE SPECIFIC GRAVITY 1.009; UROBILINOGEN,URINE NEGATIVE mg/dL (<2.0)
--- NOTE | 2019-05-15 08:23 | RADIOLOGY REPORT (SQ) ---
EXAM DESCRIPTION: ACUTE ABDOMEN SERIES COMPLETED DATE/TIME: 05/15/2019 7:28 am REASON FOR STUDY: Migratory abdominal pains COMPARISON: None. NUMBER OF VIEWS: Three views. TECHNIQUE: Frontal chest, supine abdomen and upright/decubitus abdomen radiographic images acquired. LIMITATIONS: None. FINDINGS: CHEST: Lungs are clear. Retrocardiac hiatal hernia. FREE AIR: None. No abnormal gas collections. BOWEL GAS PATTERN: Nonobstructive pattern. No dilated loops or air fluid levels. CALCIFICATIONS: No suspicious calcifications. HARDWARE: None in the abdomen. SOFT TISSUES: No gross mass or suggestion of organomegaly. BONES: No acute fracture. No worrisome bone lesions. OTHER: No other significant finding. IMPRESSION: Retrocardiac hiatal hernia. No acute abdominal disease. TECHNICAL DOCUMENTATION: JOB ID: [id number] 2010 [employer]- All Rights Reserved Reading location - IP/workstation name: [email or web address]
[2019-05-15 09:40] VITALS: BP 146/80
== END 2019-05-15 09:22 | disposition home or self-care (01) ==
LOC: ER 05:55
DX: K59.00 Constipation, unspecified (principal); R10.84 Generalized abdominal pain; F03.90 Unspecified dementia, unspecified severity, without behavioral disturbance, psychotic disturbance, mood disturbance, and anxiety; Z79.899 Other long term (current) drug therapy
CPT/HCPCS: 36415; 74022; 80053; 81001; 83690; 85025; 99284

== ENCOUNTER 2019-05-19 10:12 | Emergency (ER) | payer MEDICARE ==
--- NOTE | 2019-05-19 12:15 | ER Document Report ---
ED Medical Screen (RME) - General Chief Complaint: Upper Abdominal Pain Stated Complaint: ABDOMINAL PAIN,DIARRHEA Time Seen by Provider: 05/19/19 12:03 Primary Care Provider: ANNIE LOZANO NP [Primary Care Provider] - Follow up as needed Notes: Patient is a 73-year-old female with a history of dementia who presents emergency department with a chief complaint of abdominal pain. reports that they were seen here last Friday and diagnosed with constipation. They were placed on medication which did result in bowel movements. Last bowel movement was today. is concerned because it appears that the food is not digesting completely. Denies diarrhea or vomiting. States that they saw the primary care physician earlier this week and was told that they saw "a blockage on the x-ray." They were referred to the emergency department to have a CAT scan performed. Patient reports the pain is worse with movement and eating mayonnaise. reports that she is a poor historian due to the dementia. Denies abdominal surgeries. TRAVEL OUTSIDE OF THE [place] IN LAST 30 DAYS: No - Related Data Allergies/Adverse Reactions: No Known Allergies Allergy (Verified 05/19/19 12:03) Past Medical History - Social History Chew tobacco use (# tins/day): No Frequency of alcohol use: None Drug Abuse: None - Past Medical History Cardiac Medical History: Reports: Hx Hypercholesterolemia Renal/ Medical History: Denies: Hx Peritoneal Dialysis Psychiatric Medical History: Reports: Hx Dementia Past Surgical History: Reports: Other - Breast biopsy, nerve biopsy Physical Exam - Vital signs Vitals: Temp Pulse Resp BP Pulse Ox 98.1 F 69 20 129/78 H 99 05/19/19 10:17 05/19/19 10:17 05/19/19 10:17 05/19/19 10:17 05/19/19 10:17 - Abdominal Inspection: Normal Distension: No distension Tenderness: Tender - Generalized upper abdominal tenderness Course - Re-evaluation Re-evalutation: 05/19/19 12:14 I have greeted and performed a rapid initial assessment of this patient. A comprehensive ED assessment and evaluation of the patient, analysis of test results and completion of the medical decision making process will be conducted by additional ED providers. - Vital Signs Vital signs: Temp Pulse Resp BP Pulse Ox 98.1 F 69 20 129/78 H 99 05/19/19 10:17 05/19/19 10:17 05/19/19 10:17 05/19/19 10:17 05/19/19 10:17 Doctor's Discharge - Discharge Referrals: ANNIE LOZANO NP [Primary Care Provider] - Follow up as needed
[2019-05-19 13:24] LABS: ABSOLUTE BASOPHILS # (AUTO) 0.1 10^3/uL (0.0-0.2); ABSOLUTE EOSINOPHILS # (AUTO) 0.1 10^3/uL (0.0-0.6); ABSOLUTE LYMPHOCYTES (AUTO) 1.7 10^3/uL (0.5-4.7); ABSOLUTE MONOCYTES (AUTO) 0.6 10^3/uL (0.1-1.4); ABSOLUTE NEUT (AUTO) 3.9 10^3/uL (1.7-8.2); BASOPHILS % (AUTO) 1.4 % (0-2); HEMATOCRIT 38.9 % (36.0-47.0); HEMOGLOBIN 13.2 g/dL (12.0-15.5); LYMPHOCYTES % (AUTO) 26.5 % (13-45); MEAN CORPUSCULAR HEMOGLOBIN 29.5 pg (27.0-33.4); MEAN CORPUSCULAR HGB CONC 33.8 g/dL (32.0-36.0); MEAN CORPUSCULAR VOLUME 87 fl (80-97); MONOCYTES % (AUTO) 10.1 % (3-13); PLATELET COUNT 238 10^3/uL (150-450); RED BLOOD COUNT 4.46 10^6/uL (3.72-5.28); RED CELL DISTRIBUTION WIDTH 13.5 % (11.5-14.0); TOTAL CELLS COUNTED % (AUTO) 100 %; WHITE BLOOD COUNT 6.3 10^3/uL (4.0-10.5)
[2019-05-19 13:36] LABS: APPEARANCE,URINE CLEAR; BILIRUBIN,URINE NEGATIVE (NEGATIVE); COLOR,URINE YELLOW; GLUCOSE, URINE NEGATIVE (NEGATIVE); KETONES,URINE NEGATIVE (NEGATIVE); LEUKOCYTE ESTERASE,URINE SMALL (NEGATIVE); NITRITE,URINE NEGATIVE (NEGATIVE); PROTEIN,URINE NEGATIVE (NEGATIVE); URINE SPECIFIC GRAVITY 1.018; UROBILINOGEN,URINE NEGATIVE mg/dL (<2.0)
[2019-05-19 13:41] LABS: ALBUMIN 4.2 g/dL (3.5-5.0); ALKALINE PHOSPHATASE 94 U/L (38-126); ANION GAP 6 (5-19); ASPARTATE AMINO TRANSFERASE 67 U/L (14-36); BILIRUBIN,TOTAL 0.5 mg/dL (0.2-1.3); BLOOD UREA NITROGEN 18 mg/dL (7-20); CALCIUM 9.5 mg/dL (8.4-10.2); CARBON DIOXIDE 30 mmol/L (22-30); CHLORIDE 102 mmol/L (98-107); GLUCOSE 77 mg/dL (75-110); TOTAL PROTEIN 7.3 g/dL (6.3-8.2)
--- NOTE | 2019-05-19 16:09 | RADIOLOGY REPORT (SQ) ---
EXAM DESCRIPTION: CT ABD/PELVIS WITH IV ORAL COMPLETED DATE/TIME: 05/19/2019 3:41 pm REASON FOR STUDY: Upper abdominal pain COMPARISON: None. TECHNIQUE: CT scan of the abdomen and pelvis performed using helical scanning technique with dynamic intravenous contrast injection. No oral contrast. Images reviewed with lung, soft tissue, and bone windows. Reconstructed coronal and sagittal MPR images reviewed. Delayed images for evaluation of the urinary system also acquired. All images stored on PACS. All CT scanners at this facility use dose modulation, iterative reconstruction, and/or weight based d osing when appropriate to reduce radiation dose to as low as reasonably achievable (ALARA). [facility]: Dose Right [facility]: CareDose [facility]: Dose Right [facility]: Teradose 4D [facility]: Yours Florally CONTRAST TYPE AND DOSE: contrast/concentration: Isovue 350.00 mg/ml; Total Contrast Delivered: 45.0 ml; Total Saline Delivered: 65.0 ml RENAL FUNCTION: BUN 18, creatinine 0.58 RADIATION DOSE: CT Rad equipment meets quality standard of care and radiation dose reduction techniq ues were employed. CTDIvol: 8.2 mGy. DLP: 1136 mGy-cm.. LIMITATIONS: None. FINDINGS: LOWER CHEST: Moderate size hiatal hernia. LIVER: Normal size. No masses. No dilated ducts. SPLEEN: Normal size. No focal lesions. PANCREAS: No masses. No significant calcifications. No adjacent inflammation or peripancreatic fluid collections. Pancreatic duct not dilated. GALLBLADDER: No identified stones by CT criteria. No inflammatory changes to suggest cholecystitis. ADRENAL GLANDS: No significant masses or asymmetry. RIGHT KIDNEY AND URETER: No solid masses. No significant calcifications. Markedly dilated right u reter. This measures up to 3.5 cm in greatest transverse dimensions. LEFT KIDNEY AND URETER: No solid masses. No significant calcifications. Mild dilatation of left u reter distally. AORTA AND VESSELS: No aneurysm. No dissection. Renal arteries, SMA, celiac without stenosis. RETROPERITONEUM: No retroperitoneal adenopathy, hemorrhage or masses. BOWEL AND PERITONEAL CAVITY: No masses or inflammatory changes. No free fluid or peritoneal masses. APPENDIX: Normal. PELVIS: No mass. No free fluid. Normal bladder. ABDOMINAL WALL: No masses. No hernias. BONES: No significant or acute findings. OTHER: No other significant finding. IMPRESSION: Right-sided megaureter. No hydronephrosis. This may represent a congenital abnormality . No stones are identified. There is moderate dilatation of the left ureter as well again no hydron ephrosis. No stones or obvious stricture. Urology consultation is recommended. TECHNICAL DOCUMENTATION: JOB ID: [id number] Quality ID # [id number]: Final reports with documentation of one or more dose reduction techniques (e.g., Au tomated exposure control, adjustment of the mA and/or kV according to patient size, use of iterative reconstruction technique) 2010 [employer]- All Rights Reserved Reading location - IP/workstation name: [email or web address]
[2019-05-19] MEDS ORDERED: CIPROFLOXACIN HCL 500 MG TABLET PO ONE (17:57)
--- NOTE | 2019-05-19 17:57 | ER Document Report ---
ED General - General Chief Complaint: Upper Abdominal Pain Stated Complaint: ABDOMINAL PAIN,DIARRHEA Time Seen by Provider: 05/19/19 12:03 Primary Care Provider: ANNIE LOZANO NP [Primary Care Provider] - Follow up as needed Information source: Relative Notes: Patient is a 73-year-old female presenting to the emergency department with her chief complaint of abdominal pain. Family member states that the patient has moderate dementia she has been complaining of abdominal pain for several days. Patient states she had one episode of diarrhea last week. Patient denies travel history trauma history sick contacts or any obvious bad food exposure. TRAVEL OUTSIDE OF THE [place] IN LAST 30 DAYS: No - HPI Onset: Last week Onset/Duration: Gradual, Worse Quality of pain: Achy, Pressure Severity: Moderate Pain Level: 2 Associated symptoms: Nausea Exacerbated by: Denies Relieved by: Denies Similar symptoms previously: Yes Recently seen / treated by doctor: No - Related Data Allergies/Adverse Reactions: No Known Allergies Allergy (Verified 05/19/19 12:03) Past Medical History - General Information source: Patient, Relative - Social History Smoking Status: Never Smoker Chew tobacco use (# tins/day): No Frequency of alcohol use: None Drug Abuse: None Lives with: Spouse/Significant other Family History: Reviewed & Not Pertinent Patient has suicidal ideation: No Patient has homicidal ideation: No - Past Medical History Cardiac Medical History: Reports: Hx Hypercholesterolemia Neurological Medical History: Reports: Other - Alzheimer's dementia Renal/ Medical History: Denies: Hx Peritoneal Dialysis Psychiatric Medical History: Reports: Hx Dementia Past Surgical History: Reports: Other - Breast biopsy, nerve biopsy Review of Systems - Review of Systems Notes: REVIEW OF SYSTEMS: CONSTITUTIONAL : Per HPI EENT: Denies eye, ear, throat, or mouth pain or symptoms. Denies nasal or sinus congestion. CARDIOVASCULAR: Denies chest pain. RESPIRATORY: Denies cough, cold, or chest congestion. Denies shortness of breath, difficulty breathing, or wheezing. GASTROINTESTINAL: Per HPI GENITOURINARY: Denies difficulty urinating, painful urination, burning, frequency, or blood in urine. MUSCULOSKELETAL: Denies neck or back pain or joint pain or swelling. SKIN: Denies rash or skin lesions. HEMATOLOGIC : Denies easy bruising or bleeding. NEUROLOGICAL: Per HPI PSYCHIATRIC: Denies suicidal or homicidal ideations 10 Systems are negative unless otherwise specified above Physical Exam - Vital signs Vitals: Temp Pulse Resp BP Pulse Ox 98.1 F 69 20 129/78 H 99 05/19/19 10:17 05/19/19 10:17 05/19/19 10:17 05/19/19 10:17 05/19/19 10:17 - Notes Notes: PHYSICAL EXAMINATION: GENERAL: Well-appearing, well-nourished and in no acute distress. HEAD: Atraumatic, normocephalic. EYES: Pupils equal round and reactive to light, extraocular movements intact, sclera anicteric, conjunctiva are normal. ENT: nares patent, oropharynx clear without exudates. Dry mucous membranes. NECK: Normal range of motion, supple without lymphadenopathy, no appreciable JVD LUNGS: Lungs clear to auscultation bilaterally and equal. No wheezes rales or rhonchi. HEART: Regular rate and rhythm without murmurs ABDOMEN: Soft, minimally tender diffusely, normal bowel sounds. No guarding, no rebound. No masses appreciated. EXTREMITIES: Full range of motion, no pitting or edema. No cyanosis. 2+ pulses x4 NEUROLOGICAL: Per family patient is at her normal level she answers basic questions appropriately but definitely shows signs of dementia. SKIN: Warm, Dry, and intact. Normal turgor, no rashes or lesions noted. Course - Re-evaluation Re-evalutation: 05/19/19 17:58 I discussed the laboratory results with the he is agreeable with conservative management and treatment for UTI. Patient will be given prescription for Cipro and initial dose of antibiotic in the emergency department. Review of labs demonstrate no elevated liver gallbladder or pancreatic enzymes electrolytes are within normal limits and no signs of anemia or elevated white blood cell count. Patient is stable at time of discharge. - Vital Signs Vital signs: Temp Pulse Resp BP Pulse Ox 97.7 F 69 18 122/75 99 05/19/19 18:31 05/19/19 10:17 05/19/19 18:31 05/19/19 18:31 05/19/19 18:31 - Laboratory Result Diagrams: 05/19/19 13:01 05/19/19 13:01 Laboratory results interpreted by me: 05/19/19 05/19/19 13:01 13:01 AST 67 H Ur Leukocyte Esterase SMALL H Urine Ascorbic Acid 20 H Discharge - Discharge Clinical Impression: Abdominal pain Qualifiers: Abdominal location: generalized Qualified Code(s): R10.84 - Generalized abdominal pain UTI (urinary tract infection) Qualifiers: Urinary tract infection type: site unspecified Hematuria presence: without hematuria Qualified Code(s): N39.0 - Urinary tract infection, site not specified Condition: Stable Disposition: HOME, SELF-CARE Instructions: Abdominal Pain ([facility]), Urinary Tract Infection ([facility]) Prescriptions: Ciprofloxacin HCl [Cipro 500 mg Tablet] 500 mg PO BID #10 tablet Referrals: ANNIE LOZANO NP [Primary Care Provider] - Follow up as needed
[2019-05-19 18:32] VITALS: BP 122/75
== END 2019-05-19 18:36 | disposition home or self-care (01) ==
LOC: ER 10:12
DX: N39.0 Urinary tract infection, site not specified (principal); R10.84 Generalized abdominal pain; R10.10 Upper abdominal pain, unspecified; F03.90 Unspecified dementia, unspecified severity, without behavioral disturbance, psychotic disturbance, mood disturbance, and anxiety; R19.7 Diarrhea, unspecified
CPT/HCPCS: 99284; 36415; 83690; 85025; 80053; 81001; 74177; A9270